=== PATIENT | male | born 1995 | race Caucasian/White ===

== ENCOUNTER 2023-05-31 15:17 | Outpatient (OUT) | payer BC, SELFPAY ==
[2023-05-31 15:34] LABS: Basophils Percent Auto 0.4 % (0.2-2.0); Eosinophils Absolute Auto 0.2 10^3/uL (0.0-0.7); Eosinophils Percent Auto 1.9 % (0.9-7.0); Hematocrit 44.2 % (42.0-54.0); Immature Granulocytes Abs Auto 0.02 10^3/uL (0.00-0.03); Immature Granulocytes Pct Auto 0.2 % (0.0-0.5); Lymphocytes Absolute Auto 2.7 10^3/uL (1.2-3.8); Lymphocytes Percent Auto 27.2 % (20.5-60.0); Mean Corpuscular HGB Conc 33.9 g/dL (29.9-35.2); Mean Corpuscular Hemoglobin 29.5 pg (25.9-34.0); Mean Corpuscular Volume 86.8 fL (80.0-94.0); Mean Platelet Volume 10.1 fL (9.5-13.5); Monocytes Absolute Auto 0.6 10^3/uL (0.3-0.8); Monocytes Percent Auto 6.2 % (1.7-12.0); Neutrophils Absolute Auto 6.3 10^3/uL (1.4-6.5); Neutrophils Percent Auto 64.1 % (43.0-75.0); Platelet Count 243 10^3/uL (150-450); Red Blood Count 5.09 10^6/uL (4.70-6.10); Red Cell Distribution Width 12.6 % (11.0-15.0); White Blood Count 9.9 10^3/uL (4.0-11.0)
[2023-05-31 16:42] LABS: Alanine Aminotransferase 45 U/L (16-63); Aspartate Amino Transferase 27 U/L (15-37); Triglycerides 104 mg/dL (<=150)
== END 2023-05-31 15:18 | disposition home or self-care (01) ==
LOC: LAB 15:21
PROVIDERS: PCP Internal Medicine
DX: L70.0 Acne vulgaris (principal); Z79.899 Other long term (current) drug therapy
CPT/HCPCS: 36415; 84450; 84460; 84478; 85025

== ENCOUNTER 2023-07-15 12:05 | Outpatient (OUT) | payer BC, SELFPAY ==
[2023-07-15 13:09] LABS: Free T4 0.87 ng/dL (0.76-1.46)
[2023-07-15 13:11] LABS: Alanine Aminotransferase 41 U/L (16-63); Albumin Globulin Ratio 1.2; Albumin Level 4.3 g/dL (3.4-5.0); Alkaline Phosphatase 94 U/L (46-116); Anion Gap 12.9; Aspartate Amino Transferase 26 U/L (15-37); BUN Creatinine Ratio 19.1; Bilirubin Total 0.5 mg/dL (0.2-1.0); Calcium 8.8 mg/dL (8.5-10.1); Chloride 101 mmol/L (98-107); Chol HDL Ratio 4.3; Cholesterol 197 mg/dL (<=200); Estimated GFR (African America >60 (>=60); Estimated GFR (Non-African Ame >60 (>=60); Globulin 3.5 g/dL; Glucose 92 mg/dL (74-106); HDL Cholesterol 46 mg/dL (40-60); LDL Cholesterol Calculated 121.6 mg/dL; Potassium 3.9 mmol/L (3.5-5.1); Sodium 140 mmol/L (136-145); Thyroid Stimulating Hormone 0.866 uIU/mL (0.358-3.740); Total Protein 7.8 g/dL (6.4-8.2); Triglycerides 147 mg/dL (<=150); VLDL CHOLESTEROL 29.4 mg/dL
[2023-07-16 04:07] LABS: Estradiol 32.3 pg/mL (7.6-42.6)
[2023-07-20 02:07] LABS: Testosterone 216 ng/dL (264-916)
== END 2023-07-15 12:06 | disposition home or self-care (01) ==
LOC: LAB 12:08
PROVIDERS: PCP Internal Medicine; Visit Provider Nurse Practitioner Family
DX: Z00.00 Encounter for general adult medical examination without abnormal findings (principal); R63.5 Abnormal weight gain
CPT/HCPCS: 36415; 80053; 80061; 82670; 84402; 84403; 84439; 84443

== ENCOUNTER 2023-07-15 12:10 | Outpatient (OUT) | payer BC, SELFPAY ==
[2023-07-15 13:26] LABS: Basophils Percent Auto 0.4 % (0.2-2.0); Eosinophils Absolute Auto 0.2 10^3/uL (0.0-0.7); Eosinophils Percent Auto 2.3 % (0.9-7.0); Hemoglobin 14.8 g/dL (14.0-18.0); Immature Granulocytes Abs Auto 0.01 10^3/uL (0.00-0.03); Immature Granulocytes Pct Auto 0.1 % (0.0-0.5); Lymphocytes Percent Auto 35.3 % (20.5-60.0); Mean Corpuscular HGB Conc 33.6 g/dL (29.9-35.2); Mean Corpuscular Hemoglobin 29.4 pg (25.9-34.0); Mean Corpuscular Volume 87.3 fL (80.0-94.0); Mean Platelet Volume 10.5 fL (9.5-13.5); Monocytes Absolute Auto 0.6 10^3/uL (0.3-0.8); Monocytes Percent Auto 6.7 % (1.7-12.0); Neutrophils Absolute Auto 4.7 10^3/uL (1.4-6.5); Neutrophils Percent Auto 55.2 % (43.0-75.0); Platelet Count 279 10^3/uL (150-450); Red Blood Count 5.04 10^6/uL (4.70-6.10); Red Cell Distribution Width 12.9 % (11.0-15.0); White Blood Count 8.4 10^3/uL (4.0-11.0)
== END 2023-07-15 12:11 | disposition home or self-care (01) ==
LOC: LAB 12:11
PROVIDERS: PCP Internal Medicine
DX: Z00.00 Encounter for general adult medical examination without abnormal findings (principal); R63.5 Abnormal weight gain; L70.0 Acne vulgaris; Z79.899 Other long term (current) drug therapy
CPT/HCPCS: 36415; 80053; 80061; 82670; 84402; 84403; 84439; 84443; 85025

== ENCOUNTER 2023-11-18 05:38 | Emergency (ER) | payer OTHER, SELFPAY ==
[2023-11-18 05:43] VITALS: BP 128/98; PULSE 96; TEMP 36.7; O2SAT 100; BMI 34.1
--- OUTSIDE RECORDS SUMMARY | 2023-11-18 05:48 | XMS_ITS | CCD ---
Author Organization [facility] Care Team Providers Care Financial Institution President Name Role Phone Vicki Jang Unavailable Unavaila ble YuSantos garcia Unavailable Unavailable Yuhas, Santos Jean Unavailable Unavailable YUHAS, DR GRAHAM Attending Unavailable YUHAS, DR GRAHAM Consulting Unavailable YUHAS, DR GRAHAM Admitting Unavailable MISC, DR WHEAT Primary Care Unavailable WHITEHALL, DR RAISSA Joseph Consulting Unavailable MISC, DR WHEAT Primary Care Unavailable XIMENA, CARLTON Admitting Unavailable XIMENA, CARLTON Attending Unavailable CARLTON BUENO Consulting Unavailable BIMAL, DR LILIBETH Torres Primary Care Unavailable BIMAL, DR LILIBETH Torres Admitting Unavailable KUNS, DR LILIBETH Torres Attending Unavailable BIMAL, DR LILIBETH Torres Consulting Unavailable SiennahaSantos santo DO Primary Care Provider LILIBETH ALLAN Attending Unavailable SANTOS RICKS Referring Unavailable SANTOS RICKS Primary Care Unavailable LILIBETH ALLAN Attending Unavailable SANTOS RICKS Referring Unavailable SANTOS RICKS Primary Care Unavailable LILIBETH ALLAN Attending Unavailable SANTOS RICKS Referring Unavailable SANTOS RICKS Primary Care Unavailable Allergies Allergy Classification Reported Allergen(s) Allergy Type Date of Onset Reaction(s) Facility (3 sources) Lisinopril; Translations: [LISINOPRIL] Drug Allergy 12-29-2022 [facility] Medications Current Medications Medication Drug Class(es) Dates Sig (Normalized) Sig (Original) benzoyl peroxide 50 mg/ml medicated liquid soap (2 sources) benzoyl peroxide 5 % external liquid benzoyl peroxide 5 % topical cleanser apply to affected area topically ON FACE AND BACK AND WASH daily 0 Active escitalopram 5 mg oral tablet (2 sources) Serotonin Reuptake Inhibitor Start: 06-13-2023 escitalopram (LEXAPRO) 5 mg tablet Indications: Recurrent major depressive disorder, in partial remission ([facility]) TAKE 1 TABLET IN THE MORNING 90 tablet 3 06/13/2023 Active fluocinolone acetonide 0.1 mg/ml otic solution (2 sources) Corticosteroid Start: 12-29-2022 fluocinolone acetonide oiL (DERMOTIC) 0.01 % drops Administer 5 drops into the left ear in the morning and 5 drops before bedtime. 20 mL 0 12/29/2022 Active ISOtretinoin 40 mg oral capsule (3 sources) Retinoid Start: 10-13-2023 ABSORICA 40 mg capsule End: 11-01-2023 take 1 capsule by mouth in the morning, then take 1 capsule by mouth at bedtime ISOtretinoin (ACCUTANE) 30 mg capsule Take 1 capsule (30 mg total) by mouth in the morning and 1 capsule (30 mg total) before bedtime. 0 11/01/2023 Discontinued (Dose adjustment) losartan potassium 100 mg oral tablet (2 sources) Angiotensin 2 Receptor Jazmin Start: 06-06-2023 losartan (COZAAR) 100 mg tablet Indications: Essential hypertension TAKE 1 TABLET IN THE MORNING 90 tablet 3 06/06/2023 Active meloxicam 15 mg oral tablet (1 source) Nonsteroidal Anti-inflammatory Drug Start: 11-01-2023 take 1 tablet by mouth in the morning meloxicam (MOBIC) 15 mg tablet Indications: Tendonitis Take 1 tablet (15 mg total) by mouth in the morning. 14 tablet 1 11/01/2023 Active minocycline 100 mg oral tablet (1 source) Tetracycline-class Drug Start: 05-06-2017 take 100 mg by mouth every twelve hours Minocycline Active 100 MG PO Q12H May 06, 2017 12:00am naproxen 500 mg oral tablet (2 sources) Nonsteroidal Anti-inflammatory Drug Start: 02-07-2023 naproxen (NAPROSYN) 500 mg tablet Indications: Chronic back pain, unspecified back location, unspecified back pain laterality TAKE 1 TABLET TWICE A DAY NEEDED FOR PAIN 180 tablet 3 02/07/2023 Active phentermine hydrochloride 37.5 mg oral tablet (5 sources) Sympathomimetic Amine Anorectic Start: 07-04-2023 End: 11-01-2023 take 36-36.9 tablets by mouth once daily phentermine (ADIPEX-P) 37.5 mg tablet Indications: Class 2 obesity with body mass index (BMI) of 36.0 to 36.9 in adult, unspecified obesity type, unspecified whether serious comorbidity present Take 1 tablet (37.5 mg total) by mouth every morning before breakfast. 30 tablet 0 11/01/2023 Active tiZANidine 4 mg oral tablet (2 sources) Central alpha-2 Adrenergic Agonist Start: 06-06-2023 tiZANidine (ZANAFLEX) 4 mg tablet Indications: Familial Scheuermann disease TAKE 1 TABLET DAILY AT BEDTIME 90 tablet 3 06/06/2023 Active Completed/Discontinued Medications Medication Drug Class(es) Dates Sig (Normalized) Sig (Original) clindamycin 10 mg/ml topical solution (1 source) Lincosamide Antibacterial Start: 04-02-2022 End: 09-26-2023 clindamycin (CLEOCIN T) 1 % external solution apply to FACE,CHEST,AND BACK once daily 0 04/02/2022 09/26/2023 Discontinued (Therapy completed) Problems Active Problems Problem Classification Problem Date Documented Date Episodic/Chronic Coagulation and hemorrhagic disorders (7 sources) Garcia platelet syndrome; 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] Onset: 06-06-2013 05-06-2017 Chronic Diabetes mellitus without complication (4 sources) Hyperglycemia, unspecified; Translations: [HYPERGLYCEMIA UNSPECIFIED] Onset: 11-25-2020 Episodic Essential hypertension (4 sources) Essential hypertension; Translations: [Essential (primary) hypertension] Onset: 07-04-2023 07-04-2023 Chronic Glaucoma (2 sources) Preglaucoma, unspecified, bilateral; Translations: [Preglaucoma, unspecified] Onset: 08-24-2019 06-30-2022 Chronic Mood disorders (2 sources) Recurrent major depression in partial remission; Translations: [Major depressive disorder, recurrent, in partial remission] Onset: 06-30-2022 06-30-2022 Chronic Other bone disease and musculoskeletal deformities (2 sources) Familial Scheuermann disease; 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, site unspecified] Onset: 09-04-2021 06-30-2022 Chronic Other connective tissue disease (1 source) Tendinitis; Translations: [Enthesopathy, unspecified] 11-01-2023 Episodic Other connective tissue disease (1 source) Enthesopathy, unspecified; Translations: [Enthesopathy, unspecified] Onset: 11-01-2023 Episodic Other nutritional; endocrine; and metabolic disorders (2 sources) Obesity; Translations: [Obesity, unspecified] 09-26-2023 Chronic Other nutritional; endocrine; and metabolic disorders (1 source) Obesity caused by energy imbalance; Translations: [Other obesity due to excess calories] 11-01-2023 Chronic Other nutritional; endocrine; and metabolic disorders (1 source) Other obesity due to excess calories; Translations: [Other obesity due to excess calories] Onset: 11-01-2023 Chronic Other nutritional; endocrine; and metabolic disorders (1 source) Body mass index (BMI) 35.0-35.9, adult; Translations: [Body mass index (BMI) 35.0-35.9, adult] Onset: 11-01-2023 Chronic Other nutritional; endocrine; and metabolic disorders (1 source) Obesity, unspecified; Translations: [Obesity, unspecified] Onset: 11-01-2023 Chronic Other nutritional; endocrine; and metabolic disorders (1 source) Body mass index (BMI) 36.0-36.9, adult; Translations: [Body mass index (BMI) 36.0-36.9, adult] Onset: 11-01-2023 Chronic Other nutritional; endocrine; and metabolic disorders (1 source) Body mass index (BMI) 34.0-34.9, adult; Translations: [Body mass index (BMI) 34.0-34.9, adult] Onset: 09-26-2023 Chronic Other nutritional; endocrine; and metabolic disorders (1 source) Abnormal weight gain; Translations: [ABNORMAL WEIGHT GAIN] Onset: 12-02-2020 Episodic Other nutritional; endocrine; and metabolic disorders (1 source) Weight loss Onset: 11-01-2023 Episodic Other screening for suspected conditions (not mental disorders or infectious disease) (1 source) Other specified abnormal findings of blood chemistry; Translations: [Other specified abnormal findings of blood chemistry] Onset: 08-24-2023 Episodic Other skin disorders (1 source) Cystic acne; Translations: [Acne vulgaris] 05-07-2017 Episodic Other upper respiratory disease (1 source) Epistaxis; Translations: [Recurrent epistaxis] 05-07-2017 Episodic Retinal detachments; defects; vascular occlusion; and retinopathy (2 sources) Hereditary retinal dystrophy; Translations: [Unspecified hereditary retinal dystrophy] Onset: 08-24-2019 06-30-2022 Chronic Spondylosis; intervertebral disc disorders; other back problems (2 sources) Schmorl's nodes of thoracic region; Translations: [Schmorl's nodes, thoracic region] Onset: 07-08-2020 06-30-2022 Chronic Thyroid disorders (4 sources) Thyrotoxicosis, unspecified without thyrotoxic crisis or storm; Translations: [THYROTOXICOS UNS NO THYROTOX CRISIS] Onset: 12-27-2020 Chronic Unclassified (3 sources) CONTACT W/AND (SUSP) EXPOS COVID-19; Translations: [CONTACT W/AND (SUSP) EXPOS COVID-19] Onset: 09-02-2020 Unclassified (1 source) Weight Check Onset: 08-24-2023 Past or Other Problems Problem Classification Problem Date Documented Da te Episodic/Chronic Blindness and vision defects (4 sources) Cone dystrophy; 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] Onset: 02-11-2017 06-30-2022 Episodic Mood disorders (2 sources) Mood disorders Onset: 09-26-2023 Resolved: 11-01-2023 09-26-2023 Other bone disease and musculoskeletal deformities (2 sources) Disorder of bone; Translations: [Disorder of bone, unspecified] Onset: 06-07-2018 06-30-2022 Episodic Other skin disorders (2 sources) Acne; Translations: [Acne, unspecified] Onset: 02-11-2017 06-30-2022 Episodic Unclassified (1 source) CONTACT W/AND (SUSP) EXPOS COVID-19; Translations: [CONTACT W/AND (SUSP) EXPOS COVID-19] Onset: 08-28-2020 Unclassified (2 sources) Onset: 07-04-2023 Resolved: 11-01-2023 07-04-2023 Results Test Name Value Interpretation Reference Range Facility COMPREHENSIVE METABOLIC PANE Marcus 03-10-2022 Albumin [Mass/Vol] 4.7 g/dL Normal 3.6-5.1 [facility] Comment on above: Performed By: #### 5 [id number] #### [facility] [address], [address] [place] [address] Cloth Dyer: Monico Scherer MD Albumin/Globulin [Mass ratio] 2.0 {ratio} Normal 1.0-2.5 [facility] Comment on above: Performed By: #### 5 [id number], [id number] #### [facility] of [address], [address] [place] [address] Cloth Dyer: Monico Scherer MD ALP [Catalytic activity/Vol] 104 U/L Normal 36-130 [facility] Comment on above: Performed By: #### 5 [id number], [id number] #### [facility] of [address], [address] [place] [address] Cloth Dyer: Monico Scherer MD ALT [Catalytic activity/Vol] 26 U/L Normal 9-46 [facility] Comment on above: Performed By: #### 5 [id number], [id number] #### [facility] of [address], [address] [place] [address] Cloth Dyer: Monico Scherer MD AST [Catalytic activity/Vol] 22 U/L Normal 10-40 [facility] Comment on above: Performed By: #### 5 [id number], [id number] #### [facility] of [address], [address] [place] [address] Cloth Dyer: Monico Scherer MD Bilirubin [Mass/Vol] 0.3 mg/dL Normal 0.2-1.2 [facility] Comment on above: Performed By: #### 5 [id number], [id number] #### [facility] of [address], [address] [place] [address] Cloth Dyer: Monico Scherer MD BUN/CREATININE RATIO NOT APPLICABLE Normal 6-22 [facility] Comment on above: Performed By: #### 5 [id number], [id number] #### [facility] of [address], [address] [place] [address] Cloth Dyer: Monico Scherer MD Calcium [Mass/Vol] 9.4 mg/dL Normal 8.6-10.3 [facility] Comment on above: Performed By: #### 5 [id number], [id number] #### [facility] of [address], [address] [place] [address] Cloth Dyer: Monico Scherer MD Chloride [Moles/Vol] 103 mmol/L Normal 98-110 [facility] Comment on above: Performed By: #### 5 [id number], 54090 #### [facility] [place] [address] Cloth Dyer: Monico Scherer MD CO2 [Moles/Vol] 27 mmol/L Normal 20-32 [facility] Comment on above: Performed By: #### 5 [id number], 88507 #### [facility] [place] [address] Cloth Dyer: Monico Scherer MD Creatinine [Mass/Vol] 0.73 mg/dL Normal 0.60-1.24 [facility] Comment on above: Performed By: #### 5 [id number], [id number] #### [facility] [place] [address] Cloth Dyer: Monico Scherer MD GFR/1.73 sq M.predicted among non-blacks MDRD (S/P/Bld) [Vol rate/Area] 128 mL/min/{1.73_m2} Normal > OR = 60 [facility] Comment on above: Result Comment: The eGFR is based on the CKD-EPI 2020 equation. To calculate the new eGFR from a previous Creatinine or Cystatin C result, go to https://www.kidney.org/professionals/ kdoqi/gfr%5Fcalculator Performed By: #### 5 [id number], [id number] #### [facility] [place] [address] Cloth Dyer: Monico Scherer MD Globulin (S) [Mass/Vol] 2.4 g/dL Normal 1.9-3.7 [facility] Comment on above: Performed By: #### 5 [id number], [id number] #### [facility] [place] [address] Cloth Dyer: Monico Scherer MD Glucose [Mass/Vol] 86 mg/dL Normal 65-139 [facility] Comment on above: Result Comment: Non-fasting reference interval Performed By: #### 5 8984, [id number] #### [facility] of [address], [address] [place] [address] Cloth Dyer: Monico Scherer MD Potassium [Moles/Vol] 4.1 mmol/L Normal 3.5-5.[address] [facility] Comment on above: Performed By: #### 5 [id number], 82940 #### [facility] of [place] [address] Cloth Dyer: Monico Scherer MD Protein [Mass/Vol] 7.1 g/dL Normal 6.1-8.1 [facility] Comment on above: Performed By: #### 5 8984, 98763 #### [facility] of [place] [address] Cloth Dyer: Monico Scherer MD Sodium [Moles/Vol] 138 mmol/L Normal 135-146 [facility] Comment on above: Performed By: #### 5 8984, 60780 #### [facility] of [place] [address] Cloth Dyer: Monico Scherer MD Urea nitrogen [Mass/Vol] 17 mg/dL Normal 7-25 [facility] Comment on above: Performed By: #### 5 8984, 79445 #### [facility] [place] [address] Cloth Dyer: Monico Scherer MD TSH+FREE T4on 03-10-2022 Free T4 [Mass/Vol] 1.2 ng/dL Normal 0.8-1.8 [facility] Comment on above: Order Comment: FASTI NG:NO FASTING: NO Performed By: #### 5 8984, 48134 #### [facility] of [place] [address] Cloth Dyer: Monico Scherer MD TSH Qn 0.83 m[IU]/L Normal 0.40-4.50 [facility] Comment on above: Order Comment: FASTI NG:NO FASTING: NO Performed By: #### 5 8984, 86484 #### [facility] of [address] [place] [address] Cloth Dyer: Monico Scherer MD US THYROIDon 12-29-2020 US THYROID EXAMINATION: US THYROID HISTORY: Thyrotoxicosis COMPARISON: No relevant comparison available. TECHNIQUE: Sonographic images of the thyroid gland were obtained. FINDINGS: The right thyroid lobe measures 4.6 x 2.0 x 1.7 cm. Single nodule. Nodule 1: Mid lobe. 0.5 x 0.4 x 0.3 cm. Mixed solid and cystic, hypoechoic, wide, smooth margins, no consultations. TR 3 The thyroid isthmus measures 2 mm, no focal nodule The left thyroid lobe measures 4.8 x 1.6 x 1.8 cm. 2 focal nodules Nodule 1: Mid lobe. 0.4 x 0.3 x 0.3 cm. Solid, hypoechoic, wide, smooth margins, no calcifications. TR 4 Nodule 2: Inferior, 1.0 x 1.0 x 0.7 cm. Mixed solid and cystic, hypoechoic, wide, smooth margins, no calcifications. TR 3 IMPRESSION: Bilateral thyroid nodules, no follow-up required TI-RADS: The [employer] TI-RADS committee's white paper recommendations for thyroid lesions classified as TR3 (mildly suspicious) are listed below: > 1.5 cm. Follow-up ultrasound in 1, 3, and 5 years. > 2.5 cm. FNA. J. Am Tanner Radiol 2017;14:587-595. Electronically authenticated by: RAISSA FARRELL Date: 2020-12-29 07:03 Normal [facility] GLYCOHEMOGLOBIN A1Con 2020 ADA RECOMMENDATION ADA THERAPEUTIC TARGET 6.0 - 7.0 ACTION SUGGESTED > 7.0 Normal [facility] Comment on above: Performed By: #### A 1C #### [facility] [address] [place], [place] [address] Shereen Kristel Glucose [Mass/Vol] 100 mg/dL Normal [facility] Comment on above: Performed By: #### A 1C #### [facility] [address] [place], [place] [address] Shereen Kristel HbA1c (Bld) [Mass fraction] 5.1 % Normal <=6.0 [facility] Comment on above: Performed By: #### A 1C #### [facility] [address] [place] [address] Shereen Kristel PROF CHEM 8 (BAS METB)on Anion gap [Moles/Vol] 11.4 mmol/L Normal [facility] Comment on above: Performed By: #### T SH, BMP #### [facility] [address] [place] [address] Shereen Kristel Calcium [Mass/Vol] 8.7 mg/dL Normal 8.4-10.2 [facility] [place] [facility] Comment on above: Performed By: #### T NICOLÁS, BMP #### [facility] [address] [place] [address] Shereen Kristel Chloride [Moles/Vol] 101 mmol/L Normal 98-107 [facility] Comment on above: Performed By: #### T NICOLÁS, BMP #### [facility] [address] [place] [address] Shereen Kristel CO2 [Moles/Vol] 28.8 mmol/L Normal 22.0-30.0 [facility] Comment on above: Performed By: #### T NICOLÁS, BMP #### [facility] [address] [place] [address] Shereen Kristel Creatinine [Mass/Vol] 0.81 mg/dL Normal 0.66-1.25 [facility] Comment on above: Performed By: #### T NICOLÁS, BMP #### [facility] [address] [place] [address] Shereen Kristel EGFR-AF DOMINICAN >60 Normal >=60 [facility] Comment on above: Performed By: #### T SH, BMP #### [facility] [address] [place] [address] Shereen Kristel EGFR-NON AF DOMINICAN >60 Normal >=60 [facility] Comment on above: Performed By: #### T SH, BMP #### [facility] [address] [place] [address] Shereen Kristel Glucose [Mass/Vol] 95 mg/dL Normal 74-106 [facility] [place] [facility] Comment on above: Performed By: #### T SH, BMP #### [facility] [address] [place], [place] [address] Shereen Kristel Potassium [Moles/Vol] 4.2 mmol/L Normal 3.4-5.0 [facility] Comment on above: Performed By: #### T NICOLÁS, BMP #### [facility] [address] [place] [id number] Shereen Kristel Sodium [Moles/Vol] 137 mmol/L Normal 137-145 [facility] [place] [facility] Comment on above: Performed By: #### T NICOLÁS, BMP #### [facility] [address] [place] [address] Shereen Kristel Urea nitrogen [Mass/Vol] 19.0 mg/dL Normal 9.0-20.0 [facility] Comment on above: Performed By: #### T NICOLÁS, BMP #### [facility] [address] [place] [address] Shereen Kristel Urea nitrogen/Creatinine [Mass ratio] 23.5 mg/mg Normal [facility] Comment on above: Performed By: #### T NICOLÁS, BMP #### [facility] [address] [place] [address] Shereen Kristel TSHon 11-25-2020 TSH 0.357 uIU/mL Critically low 0.470-4.680 [facility] Comment on above: Performed By: #### T NICOLÁS, BMP #### [facility] [address] [place], [place] [id number] Shreeen Kristel TSH RANGE SEE BELOW Normal [facility] Comment on above: Result Comment: <0.3 4 UIU/ml HYPERTHYROID 0.34-5.60 UIU/ml EUTHYROID >5.60 UIU/ml HYPOTHYROID Performed By: #### T NICOLÁS, BMP #### [facility] [address] [place], [place] [id number] Shereen Kristel Covid-19 PCR (CVDTBH)on 08-09 EUA Statement SEE BELOW Normal [facility] Comment on above: Result Comment: This test is not yet approved or cleared by the [place] FDA. When there are no FDA-approved or cleared tests available, and other criteria are met, FDA can make tests available under an emergency access mechanism called an Emergency Use Authorization (EUA). The EUA for this test is supported by the [place] of Health and Human Service?s (HHS?s) declaration that circumstances exist to justify the emergency use of in vitro diagnostics for the detection and/or diagnosis of the virus that causes COVID-19. This EUA will remain in effect (meaning this test can be used) for the duration of the COVID-19 declaration justifying emergency of IVDs, unless it is terminated or revoked by FDA (after which the test may no longer be used). When diagnostic testing is negative, the possibility of a false negative should be considered in the context of a patients recent exposures and the presence of clinical signs and symptoms consistent with SARS-CoV-2. Performed By: #### C VDTB #### [facility] [address] [place] [address] Shereen Humphries SARS-CoV-2 (COVID-19) RNA VLAD+probe Ql (Unsp spec) Not detected Normal NOT DETECTED [facility] Comment on above: Result Comment: This test is not yet approved or cleared by the [place] FDA. When there are no FDA-approved or cleared tests available, and other criteria are met, FDA can make tests available under an emergency access mechanism called an Emergency Use Authorization (EUA). The EUA for this test is supported by the [employer] of Health and Human Service's (HHS's) declaration that circumstances exist to justify the emergency use of in vitro diagnostics for the detection and/or diagnosis of the virus that causes COVID-19. This EUA will remain in effect (meaning this test can be used) for the duration of the COVID-19 declaration justifying emergency of IVDs, unless it is terminated or revoked by FDA (after which the test may no longer be used). Performed By: #### C VDTBH #### [facility] [address] [place], [place] [id number] Shereen Humphries PROGRESSon 08-24-2019 PROGRESS HNO ID: [id number] Author: Re Goldsmith Service: ? Author Type: Physician Type: Progress Notes Filed: 08/28/2019 4:39 PM Note Text: (H40.003) Glaucoma suspect of both eyes (primary encounter diagnosis) Comment: C:D asymmetry but rim looks healthy; Tilted discs. Myopia. HVF without glaucomatous pattern Plan: Monitor without therapy for now - follow OCT ON/GCA; visual field testing performed regularly at [facility] for bioptic driving (H35.50) Hereditary retinal dystrophy Comment: Limiting central vision. Pt uses bioptic device for driving Plan: Monitor (H52.13) Myopia, bilateral Comment: CL wearer, followed by Dr. Argueta Plan: f/u as planned RTC Dr. Argueta SP as needed I have confirmed and edited as necessary the relevant ophthalmic history, ROS, and the neuro exam findings as obtained by others. I have seen and examined this patient. I have discussed the case and the management of this patient's care with the Resident/Fellow/Opt ometrist, if applicable. I also have reviewed and agree with the assessment and plan as stated above and agree with all of its relevant components. Re Goldsmith MD August 24, 2019 10:57 AM Normal [facility] Initial Visit ([facility]thopaedic [facility])on 07-01-2018 Initial Visit (Orthopaedic Surgery) History of Present IllnessAdaverna is a 22 year old male who presents today as a new patient with a chief complaint of back pain and some deformity. I did a posterior spinal fusion on his cousin, Robbi Freed. He is legally visually impaired and has been recently evaluated for work abilities and appropriate conditions. Some of his recent jobs have included working at [employer] and for a [employer] group. During the spring, when he was spreading a lot of mulch, he found himself in a substantial amount of discomfort. He then noticed pain after activities and in the morning when he first gets up. He denies any specific neuro symptoms, but his feet are always cold. OTC meds as well as Zanaflex help. He has not done any bracing or therapy so far. He has two relatives with Scheuermann's Kyphosis. Review of [facility] system review was negative per patient intake sheet as reviewed by me. Past Medical History History of visual impairment (V12.49) (Z86.69) Surgical History Denied: History of prior surgery Family History No pertinent family history Family history of Kyphosis, acquired Social History Never a smoker Allergies No Known Drug Allergies Recorded By: Vicki Jang; 07/01/2018 4:35:36 PM Current Meds Naproxen 500 MG Oral Tablet;Therapy: (Recorded:01Jul2018 ) to Recorded Dispense: 0 Days ; #: Sufficient; Refill: 0; HAWA = N; Record; Last Updated By: Vicki Jang; 07/01/2018 4:35:36 PM Zanaflex 2 MG Oral Capsule;Therapy: (Recorded:01Jul2018 ) to Recorded Dispense: 0 Days ; #: Sufficient; Refill: 0; HAWA = N; Record; Last Updated By: Vicki Jang; 07/01/2018 4:35:36 PM Physical ExamGeneral: Well developed, well nourished male in no acute distress.Skin: The skin is intact with no evidence of abrasions, bruises, or swelling.Vascular: There are 2+ pulses in both lower extremities and brisk capillary refill.Neuro: The light touch sensation is intact in both legs.He has some low kyphosis in his back (the apex is lower than normal), but has appropriate cervical lordosis. THe kyphosis worsens only a little with forward bending. There is no rotation at rest or with forward bending. He has normal DTRs and abdominal reflexes. He has good strength in his legs, a normal heel to toe gait pattern, and can toe walk, heel walk, and single leg hop easily. Results/DataHis films show 3 levels of adjacent disc wedging and schmorls nodes at T11, T12, and L1, with a little wedging at L2 and T10. The MRI shows some significant schmorls nodes. THere is one level of minimal posterior disc herniation with no canal or foraminal impingement. There is also bone edema at T12 and L1 anteriorly. Diagnoses/Problems History of visual impairment (V12.49) (Z86.69) No pertinent family history : Mother Family history of Kyphosis, acquired : Father Never a smoker Kyphosis, acquired (737.10) (M40.209) Schmorl's node (722.30) (M51.9) Provider ImpressionsThe schmorl's nodes and bone changes are likely a source of his pain. He has not done PT yet, so this is a first step. We also discussed activity modifications. If he is not helped by these, bracing to decrease the anterior load is an option, although generally not well tolerated. If none of those things resolves his pain, we can always consider referral to an adult spine surgeon. We will see him again in a few months with a new lateral thoracolumbar spine film to look for changes. Signatures Electronically signed by : Vicki Jang MD; Jul 01 2018 4:38PM EST (Author) Normal [facility] Vital Signs Date Time Vital Sign Value Performing Clinician Concetta sharma 11-01-2023 15:19-0400 Body height 172.7 cm Lilibeth Allan APRN-LAYOUT ARTIST [facility] 11-01-2023 15:19-0400 Body mass index (BMI) [Ratio] 34 kg/m2 Lilibeth Allan APRN-LAYOUT ARTIST [facility] 11-01-2023 15:19-0400 Body temperature 98.4 [degF] Lilibeth Allan APRN-LAYOUT ARTIST [facility] 11-01-2023 15:19-0400 Body weight 101.42 kg Lilibeth Allan APRN-LAYOUT ARTIST [facility] 11-01-2023 15:19-0400 Diastolic blood pressure 80 mm[Hg] Lilibeth Allan APRN-LAYOUT ARTIST [facility] 11-01-2023 15:19-0400 Heart rate 94 /min Lilibeth MORENOLAYOUT ARTIST Work Phone: [facility] [employer] [facility] 11-01-2023 15:19-0400 Respiratory rate 18 /min Lilibeth Allan APRN-LAYOUT ARTIST [facility] 11-01-2023 15:19-0400 SaO2% (BldA) [Mass fraction] 98 % Lilibeth Allan APRN-LAYOUT ARTIST [facility] 11-01-2023 15:19-0400 Systolic blood pressure 110 mm[Hg] Lilibeth Allan APRN-LAYOUT ARTIST [facility] 09-26-2023 16:27-0500 Body height 172.7 cm Lilibeth Allan APRN-LAYOUT ARTIST [facility] 09-26-2023 16:27-0500 Body mass index (BMI) [Ratio] 34.33 kg/m2 Lilibeth Allan APRN-LAYOUT ARTIST [facility] 09-26-2023 16:27-0500 Body temperature 98.8 [degF] Lilibeth Allan FOOD PREPARATION SUPERVISOR-LAYOUT ARTIST [facility] 09-26-2023 16:27-0500 Body weight 102.42 kg Lilibeth Allan APRN-LAYOUT ARTIST [facility] 09-26-2023 16:27-0500 Diastolic blood pressure 84 mm[Hg] Lilibeth Allan APRN-LAYOUT ARTIST [facility] 09-26-2023 16:27-0500 Heart rate 112 /min Lilibeth Allan APRN-LAYOUT ARTIST [facility] 09-26-2023 16:27-0500 SaO2% (BldA) [Mass fraction] 97 % Lilibeth Allan APRN-LAYOUT ARTIST [facility] 09-26-2023 16:27-0500 Systolic blood pressure 110 mm[Hg] Lilibeth Allan APRN-LAYOUT ARTIST Work Phone: [facility] [employer] [facility] Encounters Encounter Date Encounter Type Care Provider Facility Start: 11-01-2023 End: 11-01-2023 ambulatory [facility] Start: 11-01-2023 End: 11-01-2023 Office outpatient visit 25 minutes Lilibeth Allan FOOD PREPARATION SUPERVISOR-LAYOUT ARTIST Work Phone: [facility] Comment on above: Class 2 obesity due to excess calories without serious comorbidity with body mass index (BMI) of 35.0 to 35.9 in adult (Primary Dx); Tendonitis; Class 2 obesity with body mass index (BMI) of 36.0 to 36.9 in adult, unspecified obesity type, unspecified whether serious comorbidity present; Essential hypertension Start: 09-26-2023 End: 09-26-2023 ambulatory [facility] Start: 09-26-2023 End: 09-26-2023 Office outpatient visit 15 minutes Lilibeth Allan FOOD PREPARATION SUPERVISOR-LAYOUT ARTIST Work Phone: [facility] Comment on above: Class 2 obesity with body mass index (BMI) of 36.0 to 36.9 in adult, unspecified obesity type, unspecified whether serious comorbidity present (Primary Dx) Start: 08-24-2023 End: 08-24-2023 ambulatory [facility] Start: 12-27-2020 End: 12-28-[address] SANTOS RICKS Facility:[facility] Start: 11-25-2020 End: 11-26-[address] LILIBETH ALLAN Facility:[facility] Start: 08-28-2020 End: 08-28-[address] DOCTOR MOTTA Facility:[facility] Start: 06-27-2018 Patient encounter procedure Vicki Jang Facility:[id number] Procedures Date Procedure Procedure Detail Performing Clinician Start: 11-01-2023 Adult depression screening assessment Lilibeth Aguilahansa FOOD PREPARATION SUPERVISOR-LAYOUT ARTIST Work Phone: Start: 09-26-2023 Adult depression screening assessment Lilibeth Aguilahansa FOOD PREPARATION SUPERVISOR-LAYOUT ARTIST Work Phone: Plan of Treatment Date Care Activity Detail Author Start: 12-06-2024 DTaP,Tdap and Td Vaccines (2 - Td or Tdap) DTaP,Tdap and Td Vaccines (2 - Td or Tdap) [facility] Start: 10-31-2024 Adult BMI Screening Adult BMI Screen ing [facility] Start: 10-31-2024 Depression Screening Depression Scre [facility] Start: 10-31-2024 Tobacco Screening Tobacco Screening [facility] Start: 09-26-2024 Adult BMI Screening Adult BMI Screen ing [facility] Start: 09-26-2024 Depression Screening Depression Scre [facility] Start: 09-26-2024 Tobacco Screening Tobacco Screening [facility] Start: 07-04-2024 Adult BMI Follow Up Plan Adult BMI Follow Up Plan [facility] Start: 12-13-2023 End: 12-13-2023 Patient encounter procedure 12/13/2023 3:40 PM EDT Office Visit [facility] [address] [place] [address] Lilibeth Allan, FOOD PREPARATION SUPERVISOR-LAYOUT ARTIST [address] [place] [address] [facility] Start: 04-08-2023 Influenza vaccination Influenza Vacc ine [facility] Immunizations Immunization Date Immunization Notes Care Provider Fa cility 12-06-2014 tetanus toxoid, redu hanh diphtheria toxoid, and acellular pertussis vaccine, adsorbed Lilibeth Allan FOOD PREPARATION SUPERVISOR-LAYOUT ARTIST Work Phone: [facility] Payers Date Payer Category Payer Unknown [employer] (PPO) [id number] 2021-Present [phone] [address] [place] [address] [id number] 1995 Unknown [id number] 1995 Unknown [id number] 593 1994 Unknown [id number] 593 1994 Unknown [id number] 593 1994 Unknown [id number] 1286 1994 Unknown [id number] 1286 1994 Unknown [id number] 1286 1959 Unknown [id number] Private Health Insurance [id number] Self-pay Self Pay [id number] Unknown HCAP/HFA/FAP Active [id number] Social History Date Type Detail Facility Tobacco smoking stat [facility] Unknown if ever smoked [facility] Work Phone: Start: 1995 Sex Assigned At Male [facility] Start: 06-30-[address] [facility] Never smoked tobacco [facility] Start: 06-30-2022 Tobacco use and exposure Smokeless tobacco non-user [facility] Start: 09-26-2023 End: 11-01-2023 Alcohol intake Current drinker of alcohol (finding) [facility] Start: 09-26-2023 End: 11-01-2023 Alcohol intake [facility] Start: 09-26-2023 End: 11-01-2023 Tobacco use panel [facility] Adolescent depressio n screening assessment 0 [facility] Start: 1995 Sex Assigned At Not on file P [facility] History of Present illness Narrative 11-01-2023 Lilibeth Allan, FOOD PREPARATION SUPERVISOR-LAYOUT ARTIST - 11/01/2023 3:20 PM EDT Note Date & Type Note Facility 11-01-2023 History of Present illness Narrative Subjective Patient ID: Juan Manuel Bernardo is a 28 y.o. male. He hasn't exercised as much this past month but still making progress with his weight loss Still working out vigorously From June to now he has lost 22 lbs No side effects from medication He does have a new problem today for the past week he has had pain in the left lateral elbow area from just above and below the elbow It hurts most to fully extend the elbow and when there is resistance against, it is worst first thing in the morning and then it improves during the day The following portions of the patient's history were reviewed and updated as appropriate: allergies, current medications, past family history, past medical history, past social history, past surgical history, problem list, and medication reconciliation was completed including current medication and post discharge medication. Review of Systems Constitutional: Negative. HENT: Negative. Eyes: Negative. Respiratory: Negative. Cardiovascular: Negative. Gastrointestinal: Negative. Endocrine: Negative. Genitourinary: Negative. Musculoskeletal: Positive for arthralgias. Negative for joint swelling. Skin: Negative. Allergic/Immunologic: Negative. Neurological: Negative. Hematological: Negative. Psychiatric/Behavioral: Negative. Objective Physical Exam Vitals and nursing note reviewed. Constitutional: General: He is not in acute distress. HENT: Head: Normocephalic. Eyes: Conjunctiva/sclera: Conjunctivae normal. Cardiovascular: Rate and Rhythm: Normal rate and regular rhythm. Heart sounds: Normal heart sounds. No murmur heard. Pulmonary: Effort: Pulmonary effort is normal. Breath sounds: Normal breath sounds. Musculoskeletal: General: Tenderness (tenderness along the lateral aspect just above and below the right elbow and with full extension of the arm but not pronation or supination no tenderness of the joint of itself) present. Cervical back: No tenderness. Right lower leg: No edema. Left lower leg: No edema. Lymphadenopathy: Cervical: No cervical adenopathy. Skin: General: Skin is warm and dry. Capillary Refill: Capillary refill takes less than 2 seconds. Neurological: Mental Status: He is alert and oriented to person, place, and time. Psychiatric: Mood and Affect: Mood normal. Behavior: Behavior normal. Thought Content: Thought content normal. Judgment: Judgment normal. Patient noted to have elevated BMI and the following intervention(s) were applied: encouragement to exercise. Assessment/Plan Juan Manuel was seen today for weight loss. Diagnoses and all orders for this visit: Class 2 obesity due to excess calories without serious comorbidity with body mass index (BMI) of 35.0 to 35.9 in adult Tendonitis - meloxicam (MOBIC) 15 mg tablet; Take 1 tablet (15 mg total) by mouth in the morning. Class 2 obesity with body mass index (BMI) of 36.0 to 36.9 in adult, unspecified obesity type, unspecified whether serious comorbidity present - phentermine (ADIPEX-P) 37.5 mg tablet; Take 1 tablet (37.5 mg total) by mouth every morning before breakfast. Essential hypertension Blood pressure is stable, no changes made today Blood work current, reviewed from Jun 30 Continue his phentermine as he is having good results and no side effects He is to continue with diet modifications and exercise minus the weight lifting for now His OARRS was reviewed and no issues noted He is having some elbow pain along the tendon, he is to stop lifting for a short time, wear an elbow sleeve, ice and take mobic for two weeks The OARRS/MAPPS database was reviewed today and found to be appropriate. No indication of medication diversion, or non compliance. MATEUS Strickland 11/01/23 4340 documented in this encounter [facility] History of Present illness Narrative 09-26-2023 MATEUS Strickland - 09/26/2023 4:30 PM EST Note Date & Type Note Facility 09-26-2023 History of Present illness Narrative Subjective Patient ID: Juan Manuel Bernardo is a 28 y.o. male. Here for review of adipex use Has lost 9 lbs since last visit His stress level is up some this week, he is going to be starting a new position at work He has a lot of work stress but otherwise he feels things are going well He is going to the gym and is not having any side effects His goal is to get down to about 190 lbs The following portions of the patient's history were reviewed and updated as appropriate: allergies, current medications, past family history, past medical history, past social history, past surgical history, problem list, and medication reconciliation was completed including current medication and post discharge medication. Review of Systems Constitutional: Positive for activity change. HENT: Negative. Eyes: Negative. Respiratory: Negative. Cardiovascular: Negative. Gastrointestinal: Negative. Endocrine: Negative. Genitourinary: Negative. Skin: Negative. Allergic/Immunologic: Negative. Neurological: Negative. Hematological: Negative. Psychiatric/Behavioral: Negative. Objective Physical Exam Vitals and nursing note reviewed. Constitutional: Appearance: He is obese. HENT: Head: Normocephalic. Eyes: Conjunctiva/sclera: Conjunctivae normal. Cardiovascular: Rate and Rhythm: Regular rhythm. Tachycardia present. Heart sounds: Normal heart sounds. No murmur heard. Pulmonary: Effort: Pulmonary effort is normal. Breath sounds: Normal breath sounds. Musculoskeletal: Cervical back: Neck supple. Right lower leg: No edema. Left lower leg: No edema. Lymphadenopathy: Cervical: No cervical adenopathy. Skin: General: Skin is warm and dry. Neurological: Mental Status: He is alert and oriented to person, place, and time. Psychiatric: Mood and Affect: Mood normal. Behavior: Behavior normal. Thought Content: Thought content normal. Judgment: Judgment normal. Assessment/Plan Juan Manuel was seen today for weight check. Diagnoses and all orders for this visit: Class 2 obesity with body mass index (BMI) of 36.0 to 36.9 in adult, unspecified obesity type, unspecified whether serious comorbidity present - phentermine (ADIPEX-P) 37.5 mg tablet; Take 1 tablet (37.5 mg total) by mouth every morning before breakfast. He is making good progress with the adipex, prescription renewed today, will see back in one month The OARRS/MAPPS database was reviewed today and found to be appropriate. No indication of medication diversion, or non compliance. MATEUS Strickland 09/26/23 1835 documented in this encounter [facility] Evaluation note Note Date & Type Note Facility Evaluation note No assessment information [facility] Work Phone: Evaluation note Note Date & Type Note Facility Evaluation note Diagnosis Class 2 obesity with body mass index (BMI) of 36.0 to 36.9 in adult, unspecified obesity type, unspecified whether serious comorbidity present- Primary documented in this encounter [facility] Evaluation note Note Date & Type Note Facility Evaluation note Diagnosis Class 2 obesity due to excess calories without serious comorbidity with body mass index (BMI) of 35.0 to 35.9 in adult- Primary Tendonitis Enthesopathy of unspecified site Class 2 obesity with body mass index (BMI) of 36.0 to 36.9 in adult, unspecified obesity type, unspecified whether serious comorbidity present Essential hypertension Unspecified essential hypertension documented in this encounter [facility] Instructions Note Date & Type Note Facility Instructions Not on filedocumented in this en counter [facility] Instructions Attachments Note Date & Type Note Facility Instructions The following attachments cannot be sent through Care Everywhere.Lateral Epicondylitis Exercises (Malay)documented in this encounter [facility] Summary Purpose Family History No Family History Records FoundNo Family History Records FoundNo Family History Records FoundNo Family History Records FoundNo Family History Records FoundNo Family History Records Found Advance Directives No Advanced Directives Records FoundNo Advanced Directives Records FoundNo Advanced Directives Records FoundNo Advanced Directives Records FoundNo Advanced Directives Records FoundNo Advanced Directives Records Found Reason for Referral Specialty Diagnoses / Procedures Referred By Contac t Referred To Contact Diagnoses Class 2 obesity with body mass index (BMI) of 36.0 to 36.9 in adult, unspecified obesity type, unspecified whether serious comorbidity present Lilibeth Allan, FOOD PREPARATION SUPERVISOR-LAYOUT ARTIST [address] [place] [address] Referral ID Status Reason Start Date Expiration Date Visits Re quested Visits Authorized [id number] Closed 1 1 Referral ID Status Reason Start Date Expiration Date Visits Re quested Visits Authorized [id number] Closed 1 1 Additional Source Comments (unrecognized sect ion and content) No Status Records FoundNo Status Records FoundNo Status Records FoundNo Status Records FoundNo Status Records FoundNo Status Records Found INFORMATION SOURCE (unrecogn ized section and content) DATE CREATED AUTHOR 07/17/2018 [facility] DATE CREATED AUTHOR AUTHOR'S ORGANIZ ATION 07/17/2018 [facility] DATE CREATED AUTHOR AUTHOR'S ORGANIZ ATION 08/28/2019 [facility] DATE CREATED AUTHOR AUTHOR'S ORGANIZ ATION 01/01/2021 [facility] DATE CREATED AUTHOR AUTHOR'S ORGANIZ ATION 03/11/2022 [facility] DATE CREATED AUTHOR AUTHOR'S ORGANIZ ATION 11/03/20[facility] Goals (unrecognized section and content) Goals may be documented in a n alternate sectionNot on filedocumented as of this encounterNot on filedocumented as of this encounter Reason for Visit (unrecogniz ed section and content) Reason Comments Weight Check Reason Comments Weight Loss Care Teams (unrecognized sec tion and content) Financial Institution President Relationship Specialty Start Date End Date Santos Ricks DO [address] [place] [address] PCP - General Internal Medicine 06/30/22 Financial Institution President Relationship Specialty Start Date End Date Santos Ricks DO [address] [place] [address] PCP - General Internal Medicine 06/30/22 FOR RECORDS PERTAINING TO PATIENTS WHO ARE OR HAVE BEEN ENROLLED IN A CHEMICAL DEPENDENCY/SUBSTANCEABUSE PROGRAM, SOME INFORMATION MAY BE OMITTED. This clinical summary was aggregated from multiple sources. Caution should be exercised in using it in the provision of clinical care. This summary normalizes information from multiple sources, and as a consequence, information in this document may materially change the coding, format and clinical context of patient data. In addition, data may be omitted in some cases. CLINICAL DECISIONS SHOULD BE BASED ON THE PRIMARY CLINICAL RECORDS. [facility]. provides no warranty or guarantee of the accuracy or completeness of information in this document.
--- NOTE | 2023-11-18 05:57 | XR_ITS ---
The [address] [address] Patient Name: IMANI MADDEN MRN: [id number] date: 1995 Sex: M Assigned Patient Location: ER Current Patient Location: ER Accession/Order Number: [id number] Exam Date: 11/18/2023 06:17 Report Date: 11/18/2023 06:42 At the request of: CHUCKY MARKER Procedure: XR foot RT min 3V PROCEDURE: XR foot RT min 3V HISTORY: foot pain ; heavy object fell on foot COMPARISON: None. FINDINGS: BONES:No fracture, acute abnormality, or significant arthropathy. SOFT TISSUES:Distal dorsal soft tissue swelling. EFFUSION:None visible. OTHER: Negative. XR/XR foot RT min 3V IMPRESSION: 1. Dorsal soft tissue swelling. 2. No acute bone abnormality. Electronically authenticated by: TONE SIMS Date: 11/18/2023 06:42
--- NOTE | 2023-11-18 06:03 | ED_ITS ---
HPI HPI - Extremity Injury (Lower) General Chief Complaint: Extremity Injury, Lower Stated Complaint: LOWER EXTREMITY PAIN/ BWC Time Seen by Provider: 11/18/23 05:44 Source: patient Mode of arrival: walk-in Limitations: no limitations History of Present Illness HPI Narrative: This 28-year-old male who works for the [employer] presents for evaluation of a right foot injury. The patient states that a pin from the [employer] cars Weighing between 30 and 40 pounds fell onto his right foot. He was wearing steel toed boots. The area that was injured was distal to his toes. He has pain and swell ing on the right 1st 2nd and 3rd metatarsals. This area is swollen and bruised. He did not fall. He has no additional complaints. Related Data Home Medications ?Medication ?Instructions ?Recorded ?Confirmed escitalopram oxalate 5 mg tablet 5 mg PO DAILY 11/18/23 11/18/23 isotretinoin 40 mg capsule 40 mg PO BID 11/18/23 11/18/23 (Absorica) losartan 100 mg tablet 100 mg PO DAILY 11/18/23 11/18/23 naproxen 500 mg tablet 500 mg PO Q12H 11/18/23 11/18/23 tizanidine 4 mg tablet 4 mg PO DAILY 11/18/23 11/18/23 Allergies Allergy/AdvReac Type Severity Reaction Status Date / Time No Known Drug Allergies Allergy Verified 11/18/23 05:49 Opioid HPI Opioid Management Most Recent Pain and Opioid Data: Last Pain Scale 6 11/18/23 07:09 Last ED Pain Assessment 11/18/23 06:03 Last MAR Pain Assessment 11/18/23 07:09 Review of Systems ROS Status of ROS 10 or more systems reviewed and unremark able except as noted in history and below Exam Narrative Exam Narrative: Nurses note and vital signs reviewed and patient is not hypoxic. General: Alert, nontoxic but uncomfortable appearing male, no respiratory distress Skin: Warm, dry, no pallor noted. There is no rash noted. Head: Normocephalic, atraumatic Eye: Normal conjunctiva, no drainage, EOMI. PERRL Cardiovascular: Regular Rate and Rhythm Respiratory: Patient is in no distress, no accessory muscle use, lungs are clear to auscultation, no wheezing, rales or rhonchi Musculoskeletal: Right lower extremity: There is tenderness, swelling and bruising to the medial arch aspect of the foot and the 1st 2nd and 3rd metatarsals. Dorsalis pedis pulse is brisk. Patient is able to move his toes but this causes pain in the midfoot. Ankle and Achilles are intact Neurological: A&O x4, normal speech Psychiatric: Cooperative Constitutional Vital Signs, click to edit/add: Last Vital Signs Temp 98.1 F 11/18/23 05:43 Pulse 96 H 11/18/23 05:43 Resp 16 11/18/23 05:43 BP 128/98 H 11/18/23 05:43 Pulse Ox 100 11/18/23 05:43 O2 Del Method Room Air 11/18/23 05:43 Course Vital Signs Vital signs: Vital Signs Temperature 98.1 F 11/18/23 05:43 Pulse Rate 96 H 11/18/23 05:43 Respiratory Rate 16 11/18/23 05:43 Blood Pressure 128/98 H 11/18/23 05:43 Pulse Oximetry 100 11/18/23 05:43 Oxygen Delivery Method Room Air 11/18/23 05:43 Temperature 98.1 F 11/18/23 05:43 Pulse Rate 96 H 11/18/23 05:43 Respiratory Rate 16 11/18/23 05:43 Blood Pressure 128/98 H 11/18/23 05:43 Pulse Oximetry 100 11/18/23 05:43 Oxygen Delivery Method Room Air 11/18/23 05:43 MDM - Extremity Injury (Lower) MDM Narrative Medical decision making narrative: This 28 year old male presents for evaluation of a right foot injury that occurred at work when a >30 pound pin from [employer] cars fell onto his foot. He has swelling and bruising of the foot, His feet and warm and sensate otherwise. Xray of the foot does not show any fracture, foreign body or dislocation. He was medicated in the ED with toradol and zofran and after his [facility] drug screen was complete,he was given a dose of percocet. A royal wrap was applied by myself to the foot for comfort and compression and he was discharged home with Rx for percocet to use as needed for pain.I also counseled him on RICE despite this not being a fracture, it is a significant crush injury/contusion. He declined the need for crutches for ambulation. Medical Records Medical records narrative: The [address] [address] XRay Report Signed Patient: IMANI MADDEN MR#: [id number] : 1995 Acct:[id number] Age/Sex: 28 / M ADM Date: 11/18/23 Loc: ER Attending Dr: Ordering Physician: Estella Sanchez Date of Service: 11/18/23 Procedure(s): XR foot RT min 3V Accession Number(s): [id number] cc: Estella Sanchez; SANTOS RICKS ~ The [address] [address] Patient Name: IMANI MADDEN MRN: [id number] date: 1995 Sex: M Assigned Patient Location: ER Current Patient Location: ER Accession/Order Number: [id number] Exam Date: 11/18/2023 06:17 Report Date: 11/18/2023 06:42 At the request of: ESTELLA SANCHEZ Procedure: XR foot RT min 3V PROCEDURE: XR foot RT min 3V HISTORY: foot pain ; heavy object fell on foot COMPARISON: None. FINDINGS: BONES:No fracture, acute abnormality, or significant arthropathy. SOFT TISSUES:Distal dorsal soft tissue swelling. EFFUSION:None visible. OTHER: Negative. XR/XR foot RT min 3V IMPRESSION: 1. Dorsal soft tissue swelling. 2. No acute bone abnormality. Electronically authenticated by: TONE SIMS Date: 11/18/2023 06:42 Discharge Plan Discharge Stand Alone Forms: Portal Instructions Chief Complaint: Extremity Injury, Lower Clinical Impression: Crush injury of right foot, Contusion of right foot Patient Disposition: Home, Self-Care Time of Disposition Decision: 06:58 Condition: Good Mode of Transportation: Private Vehicle Prescriptions / Home Meds: No Action isotretinoin [Absorica] 40 mg capsule 40 mg PO BID escitalopram oxalate 5 mg tablet 5 mg PO DAILY losartan 100 mg tablet 100 mg PO DAILY naproxen 500 mg tablet 500 mg PO Q12H tizanidine 4 mg tablet 4 mg PO DAILY Print Language: Romansh Instructions: Foot Contusion (ED), Crush Injury (ED) Referrals: SANTOS RICKS [Primary Care Provider] - 1 week Discharge Date/Time: 11/18/23 07:27
[2023-11-18] MEDS: KETOROLAC TROMETHAMINE 60 MG/2 ML VIAL IM (07:09)
[2023-11-18] MEDS: OXYCODONE HCL/ACETAMINOPHEN 5MG/325MG 1 TAB PO (07:09)
[2023-11-18] MEDS: ONDANSETRON 4 MG RAPDIS TABLET SL (07:09)
== END 2023-11-18 07:27 | disposition home or self-care (01) ==
PROVIDERS: Emergency Provider Emergency Medicine; PCP Internal Medicine
DX: S97.81XA Crushing injury of right foot, initial encounter (principal); S90.31XA Contusion of right foot, initial encounter; W20.8XXA Other cause of strike by thrown, projected or falling object, initial encounter
CPT/HCPCS: 73630; 96372; 99284

== ENCOUNTER 2025-01-14 05:20 | Emergency (ER) | payer BC, SELFPAY ==
[2025-01-14 05:26] VITALS: BP 123/91; PULSE 120; TEMP 36.9; O2SAT 96; BMI 35.0
--- OUTSIDE RECORDS SUMMARY | 2025-01-14 05:28 | XMS_ITS | CCD ---
Author Organization [facility] Care Team Providers Care Reel Blade Bender Furnace Tender Name Role Phone Vicki Jang Unavailable Unavaila ble Santos Ricks Unavailable Unavailable Yuhas, Santos Jean Unavailable Unavailable YUHAS, DR GRAHAM Attending Unavailable YUHAS, DR GRAHAM Consulting Unavailable YUHAS, DR GRAHAM Admitting Unavailable MISC, DR WHEAT Primary Care Unavailable GREENVILLE, DR RAISSA Joseph Consulting Unavailable MISC, DR WHEAT Primary Care Unavailable XIMENA, CARLTON Admitting Unavailable XIMENA, CARLTON Attending Unavailable CARLTON BUENO Consulting Unavailable BIMAL, DR LILIBETH Torres Primary Care Unavailable KUNS, DR LILIBETH Torres Admitting Unavailable KUNS, DR LILIBETH Torres Attending Unavailable KUNS, DR LILIBETH Torres Consulting Unavailable LILIBETH ALLAN Attending Unavailable YUHASANTOS [place] Referring Unavailable YUHASANTOS [place] Primary Care Unavailable LILIBETH ALLAN Attending Unavailable YUSANTOS JENKINS Referring Unavailable YUHASSANTOS Primary Care Unavailable LILIBETH ALLAN Attending Unavailable YUSANTOS JENKINS Referring Unavailable YUHASANTOS [place] Primary Care Unavailable SAPNA MUNOZ Attending Unavailable SANTOS RICKS Referring Unavailable YUHASANTOS [place] Primary Care Unavailable SAPNA MUNOZ Attending Unavailable SANTOS RICKS Referring Unavailable SAPNA MUNOZ Primary Care Unavailable SAPNA MUNOZ Attending Unavailable SAPNA MUNOZ Referring Unavailable SAPNA MUNOZ Primary Care Unavailable LILIBETH ALLAN Attending Unavailable SANTOS RICKS Referring Unavailable YUSANTOS JENKINS Primary Care Unavailable LILIBETH ALLAN Attending Unavailable SANTOS RICKS Referring Unavailable SANTOS RICKS Primary Care Unavailable Alexander PRODUCT BLENDING SUPERVISOR-Sapna STROUD Primary Care Provid er Santos Ricks DO Primary Care Provider Allergies Allergy Classification Reported Allergen(s) Allergy Type Date of Onset Reaction(s) Facility (11 sources) Lisinopril; Translations: [LISINOPRIL] Drug Allergy 12-29-2022 Cough [facility] Medications Current Medications Medication Drug Class(es) Dates Sig (Normalized) Sig (Original) benzoyl peroxide 50 mg/ml medicated liquid soap (10 sources) benzoyl peroxide 5 % external liquid benzoyl peroxide 5 % topical cleanser apply to affected area topically ON FACE AND BACK AND WASH daily Active escitalopram 5 mg oral tablet (11 sources) Serotonin Reuptake Inhibitor Start: 06-13-2023 End: 02-16-2024 take 1 tablet by mouth in the morning escitalopram (LEXAPRO) 5 mg tablet Indications: Recurrent major depressive disorder, in partial remission (CMS-HCC) Take 1 tablet (5 mg total) by mouth in the morning. 90 tablet 3 02/16/2024 Active fluocinolone acetonide 0.1 mg/ml otic solution (10 sources) Corticosteroid Start: 12-29-2022 fluocinolone acetonide oiL (DERMOTIC) 0.01 % drops Administer 5 drops into the left ear in the morning and 5 drops before bedtime. 20 mL 12/29/2022 Active ISOtretinoin 40 mg oral capsule (11 sources) Retinoid Start: 10-13-2023 ABSORICA 40 mg capsule 10/13/2023 Active End: 11-01-2023 take 1 capsule by mouth in the morning, then take 1 capsule by mouth at bedtime ISOtretinoin (ACCUTANE) 30 mg capsule Take 1 capsule (30 mg total) by mouth in the morning and 1 capsule (30 mg total) before bedtime. 0 11/01/2023 Discontinued (Dose adjustment) losartan potassium 100 mg oral tablet (12 sources) Angiotensin 2 Receptor Jazmin Start: 06-06-2023 End: 08-14-2024 take 1 tablet by mouth in the morning losartan (COZAAR) 100 mg tablet Indications: Essential hypertension Take 1 tablet (100 mg total) by mouth in the morning. 90 tablet 3 02/16/2024 Active minocycline 100 mg oral tablet (1 source) Tetracycline-class Drug Start: 05-06-2017 take 100 mg by mouth every twelve hours Minocycline Active 100 MG PO Q12H May 06, 2017 12:00am naproxen 500 mg oral tablet (10 sources) Nonsteroidal Anti-inflammatory Drug Start: 03-19-2024 End: 03-19-2024 take 1 tablet by mouth in the morning, then take 1 tablet by mouth at mealtime naproxen (NAPROSYN) 500 mg tablet Indications: Chronic back pain, unspecified back location, unspecified back pain laterality Take 1 tablet (500 mg total) by mouth in the morning and 1 tablet (500 mg total) in the evening. Take with meals. 14 tablet 03/19/2024 Active Start: 02-07-2023 End: 02-16-2024 naproxen (NAPROSYN) 500 mg t ablet Indications: Chronic back pain, unspecified back location, unspecified back pain laterality TAKE 1 TABLET TWICE A DAY NEEDED FOR PAIN 180 tablet 3 02/07/2023 02/16/2024 Discontinued (Therapy completed) phentermine hydrochloride 37.5 mg oral tablet (19 sources) Sympathomimetic Amine Anorectic Start: 07-04-2023 End: 04-12-2024 take 32-32.9 tablets by mouth once daily before breakfast phentermine (ADIPEX-P) 37.5 mg tablet Indications: Class 1 obesity due to excess calories without serious comorbidity with body mass index (BMI) of 32.0 to 32.9 in adult Take 1 tablet (37.5 mg total) by mouth every morning before breakfast. 30 tablet 04/12/2024 Active tiZANidine 4 mg oral tablet (11 sources) Central alpha-2 Adrenergic Agonist Start: 07-04-2024 take 1 tablet by mouth once daily as needed for muscle spasms tiZANidine (ZANAFLEX) 4 mg tablet Indications: Familial Scheuermann disease Take 1 tablet (4 mg total) by mouth nightly as needed for muscle spasms. 90 tablet 07/04/2024 Active Start: 06-06-2023 End: 02-16-2024 take 1 tablet by mouth once daily as needed for muscle spasms tiZANidine (ZANAFLEX) 4 mg tablet Indications: Familial Scheuermann disease Take 1 tablet (4 mg total) by mouth nightly as needed for muscle spasms. 90 tablet 3 02/16/2024 Active triamcinolone acetonide 1 mg/ml topical cream (5 sources) Corticosteroid Start: 01-06-2024 triamcinolone (KENALOG) 0.1 % cream apply A THIN LAYER to affected area twice a day for up to 3 weeks repeat if needed for FLARES 01/06/2024 Active Completed/Discontinued Medications Medication Drug Class(es) Dates Sig (Normalized) Sig (Original) clindamycin 10 mg/ml topical solution (2 sources) Lincosamide Antibacterial Start: 04-02-2022 End: 09-26-2023 clindamycin (CLEOCIN T) 1 % external solution apply to FACE,CHEST,AND BACK once daily 0 04/02/2022 09/26/2023 Discontinued (Therapy completed) ibuprofen 600 mg oral tablet (3 sources) Nonsteroidal Anti-inflammatory Drug Start: 11-20-2023 End: 02-16-2024 take 1 tablet by mouth every six hours for pain ibuprofen (MOTRIN) 600 mg tablet take 1 tablet by mouth every 6 hours if needed for pain 11/20/2023 02/16/2024 Discontinued (Therapy completed) meloxicam 15 mg oral tablet (4 sources) Nonsteroidal Anti-inflammatory Drug Start: 11-01-2023 End: 02-16-2024 take 1 tablet by mouth in the morning meloxicam (MOBIC) 15 mg tablet Indications: Tendonitis Take 1 tablet (15 mg total) by mouth in the morning. 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] Onset: 06-06-2013 05-06-2017 Chronic Diabetes mellitus without complication (4 sources) Hyperglycemia, unspecified; Translations: [HYPERGLYCEMIA UNSPECIFIED] Onset: 11-25-2020 Episodic Essential hypertension (14 sources) Essential (primary) hypertension; Translations: [Essential hypertension] Onset: 07-04-2023 08-14-2024 Chronic Glaucoma (10 sources) Preglaucoma, unspecified, bilateral; Translations: [Preglaucoma, unspecified] Onset: 08-24-2019 06-30-2022 Chronic Mood disorders (12 sources) Major depressive disorder, recurrent, in partial remission; Translations: [Recurrent major depression in partial remission] Onset: 06-30-2022 06-30-2022 Chronic Other bone disease and musculoskeletal deformities (1 source) Juvenile osteochondrosis of spine, site unspecified; 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, site unspecified] Onset: 06-30-2022 Chronic Other bone disease and musculoskeletal deformities (11 sources) Familial Scheuermann disease; 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, site unspecified] Onset: 09-04-2021 06-30-2022 Chronic Other nutritional; endocrine; and metabolic disorders (1 source) Body mass index (BMI) 32.0-32.9, adult; Translations: [Body mass index (BMI) 32.0-32.9, adult] Onset: 04-12-2024 Chronic Other nutritional; endocrine; and metabolic disorders (1 source) Body mass index (BMI) 33.0-33.9, adult; Translations: [Body mass index (BMI) 33.0-33.9, adult] Onset: 12-13-2023 Chronic Other nutritional; endocrine; and metabolic disorders [...] Chronic Other nutritional; endocrine; and metabolic disorders (7 sources) Obesity caused by energy imbalance; Translations: [Other obesity due to excess calories] 12-13-2023 Chronic Other nutritional; endocrine; and metabolic disorders (2 sources) Obesity; Translations: [Obesity, unspecified] 09-26-2023 Chronic Other nutritional; endocrine; and metabolic disorders (1 source) Abnormal weight gain; Translations: [ABNORMAL WEIGHT GAIN] Onset: 12-02-2020 Episodic Other skin disorders (1 source) Cystic acne; Translations: [Acne vulgaris] 05-07-2017 Episodic Other upper respiratory disease (1 source) Epistaxis; Translations: [Recurrent epistaxis] 05-07-2017 Episodic Retinal detachments; defects; vascular occlusion; and retinopathy (10 sources) Hereditary retinal dystrophy; Translations: [Unspecified hereditary retinal dystrophy] Onset: 08-24-2019 06-30-2022 Chronic Spondylosis; intervertebral disc disorders; other back problems (10 sources) Schmorl's nodes of thoracic region; Translations: [Schmorl's nodes, thoracic region] Onset: 07-08-2020 06-30-2022 Chronic Thyroid disorders (4 sources) Thyrotoxicosis, unspecified without thyrotoxic crisis or storm; Translations: [THYROTOXICOS UNS NO THYROTOX CRISIS] Onset: 12-27-2020 Chronic Unclassified (3 sources) CONTACT W/AND (SUSP) EXPOS COVID-19; Translations: [CONTACT W/AND (SUSP) EXPOS COVID-19] Onset: 09-02-2020 Unclassified (1 source) Weight Onset: 03-15-2024 Unclassified (1 source) Weight Check Onset: 12-13-2023 Past or Other Problems Problem Classification Problem Date Documented Da te Episodic/Chronic Blindness and vision defects (20 sources) Cone dystrophy; 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] Onset: 02-11-2017 06-30-2022 Episodic Mood disorders (10 sources) Mood disorders Onset: 11-01-2023 Resolved: 02-16-2024 02-16-2024 Other bone disease and musculoskeletal deformities (10 sources) Disorder of bone; Translations: [Disorder of bone, unspecified] Onset: 06-07-2018 06-30-2022 Episodic Other connective tissue disease (1 source) Enthesopathy, unspecified; Translations: [Enthesopathy, unspecified] Onset: 11-01-2023 Episodic Other connective tissue disease (1 source) Tendinitis; Translations: [Enthesopathy, unspecified] 11-01-2023 Episodic Other nutritional; endocrine; and metabolic disorders (1 source) Weight loss Onset: 11-01-2023 Episodic Other screening for suspected conditions (not mental disorders or infectious disease) (2 sources) Other specified abnormal findings of blood chemistry; Translations: [Decreased testosterone level ] Onset: 08-24-2023 08-24-2023 Episodic Other skin disorders (10 sources) Acne; Translations: [Acne, unspecified] Onset: 02-11-2017 06-30-2022 Episodic Spondylosis; intervertebral disc disorders; other back problems (1 source) Chronic back pain ; Translations: [Dorsalgia, unspecified] 03-19-2024 Episodic Unclassified (1 source) CONTACT W/AND (SUSP) EXPOS COVID-19; Translations: [CONTACT W/AND (SUSP) EXPOS COVID-19] Onset: 08-28-2020 Unclassified (10 sources) Onset: 03-15-2024 Resolved: 04-12-2024 04-12-2024 Results Test Name Value Interpretation Reference Range Facility COMPREHENSIVE METABOLIC PANE [facility] 03-10-2022 Albumin [Mass/Vol] 4.7 g/dL Normal 3.6-5.1 [facility] Comment on above: Performed By: #### 5 [id number], [id number] #### [facility] [place] [address] Farm Truck Driver: Monico Scherer MD Albumin/Globulin [Mass ratio] 2.0 {ratio} Normal 1.0-2.5 [facility] Comment on above: Performed By: #### 5 [id number], [id number] #### [facility] [place] [address] Farm Truck Driver: Monico Scherer MD ALP [Catalytic activity/Vol] 104 U/L Normal 36-130 [facility] Comment on above: Performed By: #### 5 [id number], [id number] #### [facility] [place] [address] Farm Truck Driver: Monico Scherer MD ALT [Catalytic activity/Vol] 26 U/L Normal 9-46 [facility] Comment on above: Performed By: #### 5 8984, [id number] #### [facility] of [place] [address] Farm Truck Driver: Monico Scherer MD AST [Catalytic activity/Vol] 22 U/L Normal 10-40 [facility] Comment on above: Performed By: #### 5 [id number], [id number] #### [facility] of [address], [address] [place] [address] Farm Truck Driver: Monico Scherer MD Bilirubin [Mass/Vol] 0.3 mg/dL Normal 0.2-1.2 [facility] Comment on above: Performed By: #### 5 8984, 13100 #### [facility] of [place] [address] Farm Truck Driver: Monico Scherer MD BUN/CREATININE RATIO NOT APPLICABLE Normal 6-22 [facility] Comment on above: Performed By: #### 5 8984, [id number] #### [facility] of [place] [address] Farm Truck Driver: Monico Scherer MD Calcium [Mass/Vol] 9.4 mg/dL Normal 8.6-10.3 [facility] Comment on above: Performed By: #### 5 8984, 40173 #### [facility] of [address], [address] [place] [address] Farm Truck Driver: Monico Scherer MD Chloride [Moles/Vol] 103 mmol/L Normal 98-110 [facility] Comment on above: Performed By: #### 5 8984, 48701 #### [facility] of [place] [address] Farm Truck Driver: Monico Scherer MD CO2 [Moles/Vol] 27 mmol/L Normal 20-32 [facility] Comment on above: Performed By: #### 5 8984, 08375 #### [facility] of [address], [address] [place] [address] Farm Truck Driver: Monico Scherer MD Creatinine [Mass/Vol] 0.73 mg/dL Normal 0.60-1.[address] [facility] Comment on above: Performed By: #### 5 8984, 78136 #### [facility] [place] [address] Farm Truck Driver: Monico Scherer MD GFR/1.73 sq M.predicted among non-blacks MDRD (S/P/Bld) [Vol rate/Area] 128 mL/min/{1.73_m2} Normal > OR = 60 [facility] Comment on above: Result Comment: The eGFR is based on the CKD-EPI 2020 equation. To calculate the new eGFR from a previous Creatinine or Cystatin C result, go to https://www.kidney.org/professionals/ kdoqi/gfr%5Fcalculator Performed By: #### 5 8984, [id number] #### [facility] [place] [address] Farm Truck Driver: Monico Scherer MD Globulin (S) [Mass/Vol] 2.4 g/dL Normal 1.9-3.7 [facility] Comment on above: Performed By: #### 5 8984, 85678 #### [facility] [place] [address] Farm Truck Driver: Monico Scherer MD Glucose [Mass/Vol] 86 mg/dL Normal 65-139 [facility] Comment on above: Result Comment: Non-fasting reference interval Performed By: #### 5 8984, 22437 #### [facility] [place] [address] Farm Truck Driver: Monico Scherer MD Potassium [Moles/Vol] 4.1 mmol/L Normal 3.5-5.[address] [facility] Comment on above: Performed By: #### 5 8984, 85112 #### [facility] [place] [address] Farm Truck Driver: Monico Scherer MD Protein [Mass/Vol] 7.1 g/dL Normal 6.1-8.1 [facility] Comment on above: Performed By: #### 5 8984, 72818 #### [facility] [place] [address] Farm Truck Driver: Monico Scherer MD Sodium [Moles/Vol] 138 mmol/L Normal 135-146 [facility] Comment on above: Performed By: #### 5 8984, 01007 #### [facility] [place] [address] Farm Truck Driver: Monico Scherer MD Urea nitrogen [Mass/Vol] 17 mg/dL Normal 7-25 [facility] Comment on above: Performed By: #### 5 8984, 45952 #### [facility] [place] [address] Farm Truck Driver: Monico Scherer MD TSH+FREE T4on 03-10-2022 Free T4 [Mass/Vol] 1.2 ng/dL Normal 0.8-1.8 [facility] Comment on above: Order Comment: FASTI NG:NO FASTING: NO Performed By: #### 5 8984, 35196 #### [facility] [place] [address] Farm Truck Driver: Monico Scherer MD TSH Qn 0.83 m[IU]/L Normal 0.40-4.50 [facility] Comment on above: Order Comment: FASTI NG:NO FASTING: NO Performed By: #### 5 8984, 52690 #### [facility] [place] [address] Farm Truck Driver: Monico Scherer MD US THYROIDon 12-29-2020 US [...] thyroid nodules, no follow-up required TI-RADS: The [employer] TI-RADS committee's white paper recommendations for thyroid lesions classified as TR3 (mildly suspicious) are listed below: > 1.5 cm. Follow-up ultrasound in 1, 3, and 5 years. > 2.5 cm. FNA. J. Am Tanner Radiol 2017;14:587-595. Electronically authenticated by: RAISSA FARRELL Date: 2020-12-29 07:[address] [facility] GLYCOHEMOGLOBIN A1Con 2020 ADA RECOMMENDATION ADA THERAPEUTIC TARGET 6.0 - 7.0 ACTION SUGGESTED > 7.[address] [facility] Comment on above: Performed By: #### A 1C #### [facility] [address] [place], [place] [address] Shereen Kristel Glucose [Mass/Vol] 100 mg/dL Normal [facility] Comment on above: Performed By: #### A 1C #### [facility] [address] [place], [place] [address] Shereen Kristel HbA1c (Bld) [Mass fraction] 5.1 % Normal <=6.[address] [facility] Comment on above: Performed By: #### A 1C #### [facility] [address] [place], [place] [address] Shereen Humphries PROF CHEM 8 (BAS METB)on Anion gap [Moles/Vol] 11.4 mmol/L Normal [facility] Comment on above: Performed By: #### T SH, BMP #### [facility] [address] [place], [place] [address] Shereen Kristel Calcium [Mass/Vol] 8.7 mg/dL Normal 8.4-10.2 [facility] Comment on above: Performed By: #### T SH, BMP #### [facility] [address] [place] [address] Shereen Kristel Chloride [Moles/Vol] 101 mmol/L Normal 98-107 [facility] Comment on above: Performed By: #### T SH, BMP #### [facility] [address] [place] [address] Shereen Kristel CO2 [Moles/Vol] 28.8 mmol/L Normal 22.0-30.0 [facility] Comment on above: Performed By: #### T SH, BMP #### [facility] [address] [place] [address] Shereen Kristel Creatinine [Mass/Vol] 0.81 mg/dL Normal 0.66-1.25 [facility] Comment on above: Performed By: #### T SH, BMP #### [facility] [address] [place] [address] Shereen Kristel EGFR-AF ROMANIAN >60 Normal >=60 [facility] Comment on above: Performed By: #### T SH, BMP #### [facility] [address] [place] [address] Shereen Kristel EGFR-NON AF ROMANIAN >60 Normal >=60 [facility] Comment on above: Performed By: #### T SH, BMP #### [facility] [address] [place] [address] Shereen Kristel Glucose [Mass/Vol] 95 mg/dL Normal 74-106 [facility] Comment on above: Performed By: #### T SH, BMP #### [facility] [address] [place] [address] Shereen Kristel Potassium [Moles/Vol] 4.2 mmol/L Normal 3.4-5.0 [facility] Comment on above: Performed By: #### T SH, BMP #### [facility] [address] [place] [address] Shereen Kristel Sodium [Moles/Vol] 137 mmol/L Normal 137-145 [facility] Comment on above: Performed By: #### T SH, BMP #### [facility] [address] [place] [address] Shereen Humphries Urea nitrogen [Mass/Vol] 19.0 mg/dL Normal 9.0-20.0 [facility] Comment on above: Performed By: #### T SH, BMP #### [facility] [address] [place] [address] Shereen Humphries Urea nitrogen/Creatinine [Mass ratio] 23.5 mg/mg Normal [facility] Comment on above: Performed By: #### T SH, BMP #### [facility] [address] [place] [address] Shereen Humphries TSHon 11-25-2020 TSH 0.357 uIU/mL Critically low 0.470-4.680 [facility] Comment on above: Performed By: #### T NICOLÁS, BMP #### [facility] [address] [place] [address] Shereen Humphries TSH RANGE SEE BELOW Normal [facility] Comment on above: Result Comment: <0.3 4 UIU/ml HYPERTHYROID 0.34-5.60 UIU/ml EUTHYROID >5.60 UIU/ml HYPOTHYROID Performed By: #### T NICOLÁS, BMP #### [facility] [address] [place], [place] [id number] Shereen Humphries Covid-19 PCR (CVDTB)on 08-09 EUA Statement SEE BELOW Normal The [facility] Comment on above: Result Comment: This test is not yet approved or cleared by the [place] [facility] FDA. When there are no FDA-approved or cleared tests available, and other criteria are met, FDA can make tests available under an emergency access mechanism called an Emergency Use Authorization (EUA). The EUA for this test is supported by the [place] of Health and Human Service?s (HHS?s) declaration [...] consistent with SARS-CoV-2. Performed By: #### C VDTBH #### [facility] [address] [place] [address] Shereen Humphries SARS-CoV-2 (COVID-19) RNA VLAD+probe Ql (Unsp spec) Not detected Normal NOT DETECTED [facility] Comment on above: Result Comment: This test is not yet approved or cleared by the [place] FDA. When there are no FDA-approved or cleared tests available, and other criteria are met, FDA can make tests available under an emergency access mechanism called an Emergency Use Authorization (EUA). The EUA for this test is supported by the [place] of Health and Human Service's (HHS's) declaration [...] used). Performed By: #### C VDTBH #### [facility] [address] [place] [address] Shereen Humphries PROGRESSon 08-24-2019 PROGRESS HNO ID: [id number] Author: Re Goldsmith Service: ? Author Type: [...] MD August 24, 2019 10:57 AM Normal [facility] Initial Visit (Orthopaedic [facility])on 07-01-2018 Initial Visit (Orthopaedic Surgery) History of Present IllnessJuan Manuel is a 22 year old male who presents today as a new patient with a chief complaint of back pain and some deformity. I did a posterior spinal fusion on his cousin, Robbi Freed. He is legally visually impaired and has been recently evaluated for work abilities and appropriate conditions. Some of his recent jobs have included working at [employer] and for a [employer]. During the spring, when he was [...] two relatives with Scheuermann's Kyphosis. Review of SystemsA 16 system review was negative per patient [...] Jul 01 2018 4:38PM EST (Author) Normal [facility] Vital Signs Date Time Vital Sign Value Performing Clinician Faci lity 04-12-2024 14:29-0400 Body height 172.7 cm Sapna Munoz APRN-[employer] Work Phone: [facility] 04-12-2024 14:29-0400 Body mass index (BMI) [Ratio] 32.78 kg/m2 Sapna Munoz APRN-[employer] Work Phone: [facility] 04-12-2024 14:29-0400 Body temperature 97.9 [degF] Sapna Munoz APRN-[employer] Work Phone: [facility] 04-12-2024 14:29-0400 Body weight 97.8 kg Sapna Munoz APRN-[employer] Work Phone: [facility] 04-12-2024 14:29-0400 Diastolic blood pressure 80 mm[Hg] Sapna Munoz APRN-MAXIM[employer] Work Phone: [facility] 04-12-2024 14:29-0400 Heart rate 117 /min Sapna Munoz APRN-[employer] Work Phone: [facility] 04-12-2024 14:29-0400 Respiratory rate 18 /min Sapna Munoz APRN-[employer] Work Phone: [facility] 04-12-2024 14:29-0400 SaO2% (BldA) [Mass fraction] 97 % Sapna Munoz APRN-[employer] Work Phone: [facility] 04-12-2024 14:29-0400 Systolic blood pressure 110 mm[Hg] Sapna Munoz APRN-[employer] Work Phone: [facility] 03-15-2024 14:25-0400 Body height 172.7 cm Sapna Munoz APRN-[employer] Work Phone: [facility] 03-15-2024 14:25-0400 Body mass index (BMI) [Ratio] 33.03 kg/m2 Sapna Munoz APRN-[employer] Work Phone: [facility] 03-15-2024 14:25-0400 Body temperature 98.6 [degF] Sapna Munoz APRN-[employer] Work Phone: [facility] 03-15-2024 14:25-0400 Body weight 98.52 kg Sapna Munoz APRN-MICROBIOLOGY INSTRUCTOR Work Phone: [facility] 03-15-2024 14:25-0400 Diastolic blood pressure 80 mm[Hg] Sapna Munoz APRN-MICROBIOLOGY INSTRUCTOR Work Phone: [facility] 03-15-2024 14:25-0400 Heart rate 79 /min Sapna Munoz APRN-[employer] Work Phone: [facility] 03-15-2024 14:25-0400 SaO2% (BldA) [Mass fraction] 98 % Sapna Munoz APRN-[employer] Work Phone: [facility] 03-15-2024 14:25-0400 Systolic blood pressure 124 mm[Hg] Sapna Munoz APRN-[employer] Work Phone: [facility] 02-16-2024 13:50-0400 Body height 172.7 cm Sapna Munoz APRN-[employer] Work Phone: [facility] 02-16-2024 13:50-0400 Body mass index (BMI) [Ratio] 32.9 kg/m2 Sapna Munoz APRN-[employer] Work Phone: [facility] 02-16-2024 13:50-0400 Body temperature 98.1 [degF] Sapna Munoz APRN-[employer] Work Phone: [facility] 02-16-2024 13:50-0400 Body weight 98.16 kg Sapna Munoz APRN-MICROBIOLOGY INSTRUCTOR Work Phone: [facility] 02-16-2024 13:50-0400 Diastolic blood pressure 82 mm[Hg] Sapna Munoz APRN-MICROBIOLOGY INSTRUCTOR Work Phone: [facility] 02-16-2024 13:50-0400 Heart rate 78 /min Sapna Munoz APRN-MICROBIOLOGY INSTRUCTOR Work Phone: [facility] 02-16-2024 13:50-0400 Respiratory rate 20 /min Sapna Munoz APRN-MICROBIOLOGY INSTRUCTOR Work Phone: [facility] 02-16-2024 13:50-0400 SaO2% (BldA) [Mass fraction] 99 % Sapna Munoz APRN-MICROBIOLOGY INSTRUCTOR Work Phone: [facility] 02-16-2024 13:50-0400 Systolic blood pressure 124 mm[Hg] Sapna Munoz APRN-MICROBIOLOGY INSTRUCTOR Work Phone: [facility] 01-10-2024 16:01-0400 Body height 172.7 cm Lilibeth Allan PRODUCT BLENDING SUPERVISOR-FARM SUPERVISOR Work Phone: [facility] 01-10-2024 16:01-0400 Body mass index (BMI) [Ratio] 33.48 kg/m2 Lilibeth Allan PRODUCT BLENDING SUPERVISOR-FARM SUPERVISOR Work Phone: [facility] 01-10-2024 16:01-0400 Body temperature 97.3 [degF] Lilibeth Allan APRN-FARM SUPERVISOR Work Phone: [facility] 01-10-2024 16:01-0400 Body weight 99.88 kg Lilibeth Allan PRODUCT BLENDING SUPERVISOR-FARM SUPERVISOR Work Phone: [facility] 01-10-2024 16:01-0400 Diastolic blood pressure 82 mm[Hg] Lilibeth Allan PRODUCT BLENDING SUPERVISOR-FARM SUPERVISOR Work Phone: [facility] 01-10-2024 16:01-0400 Heart rate 92 /min Lilibeth Allan PRODUCT BLENDING SUPERVISOR-FARM SUPERVISOR Work Phone: [facility] 01-10-2024 16:01-0400 Respiratory rate 16 /min Lilibeth Allan PRODUCT BLENDING SUPERVISOR-FARM SUPERVISOR Work Phone: [facility] 01-10-2024 16:01-0400 SaO2% (BldA) [Mass fraction] 99 % Lilibeth Allan APRN-FARM SUPERVISOR Work Phone: [facility] 01-10-2024 16:01-0400 Systolic blood pressure 118 mm[Hg] Lilibeth Allan APRN-FARM SUPERVISOR Work Phone: [facility] 12-13-2023 15:42-0400 Body height 172.7 cm Lilibeth Allan APRN-FARM SUPERVISOR Work Phone: [facility] 12-13-2023 15:42-0400 Body mass index (BMI) [Ratio] 33.85 kg/m2 Lilibeth MORENOFARM SUPERVISOR Work Phone: [facility] 12-13-2023 15:42-0400 Body temperature 98.2 [degF] Lilibeth Allan APRN-FARM SUPERVISOR Work Phone: [facility] 12-13-2023 15:42-0400 Body weight 100.97 kg Lilibeth Allan APRN-FARM SUPERVISOR Work Phone: [facility] 12-13-2023 15:42-0400 Diastolic blood pressure 80 mm[Hg] Lilibeth MORENOFARM SUPERVISOR Work Phone: [facility] 12-13-2023 15:42-0400 Heart rate 93 /min Lilibeth MORENOFARM SUPERVISOR Work Phone: [facility] 12-13-2023 15:42-0400 Respiratory rate 18 /min Lilibeth Allan PRODUCT BLENDING SUPERVISOR-FARM SUPERVISOR Work Phone: [facility] 12-13-2023 15:42-0400 SaO2% (BldA) [Mass fraction] 98 % Lilibeth Allan APRN-FARM SUPERVISOR Work Phone: [facility] 12-13-2023 15:42-0400 Systolic blood pressure 120 mm[Hg] Lilibeth Allan APRN-FARM SUPERVISOR Work Phone: [facility] 11-01-2023 15:19-0400 Body height 172.7 cm Lilibeth Allan APRN-FARM SUPERVISOR Work Phone: [facility] 11-01-2023 15:19-0400 Body mass index (BMI) [Ratio] 34 kg/m2 Lilibeth Allan APRN-FARM SUPERVISOR Work Phone: [facility] 11-01-2023 15:19-0400 Body temperature 98.4 [degF] Lilibeth Allan APRN-FARM SUPERVISOR Work Phone: [facility] 11-01-2023 15:19-0400 Body weight 101.42 kg Lilibeth Allan APRN-FARM SUPERVISOR Work Phone: [facility] 11-01-2023 15:19-0400 Diastolic blood pressure 80 mm[Hg] Lilibeth Allan APRN-FARM SUPERVISOR Work Phone: [facility] 11-01-2023 15:19-0400 Heart rate 94 /min Lilibeth Allan APRN-FARM SUPERVISOR Work Phone: [facility] 11-01-2023 15:19-0400 Respiratory rate 18 /min Lilibeth Allan APRN-FARM SUPERVISOR Work Phone: [facility] 11-01-2023 15:19-0400 SaO2% (BldA) [Mass fraction] 98 % Lilibeth Allan APRN-FARM SUPERVISOR Work Phone: [facility] 11-01-2023 15:19-0400 Systolic blood pressure 110 mm[Hg] Lilibeth Allan APRN-FARM SUPERVISOR Work Phone: [facility] 09-26-2023 16:27-0500 Body height 172.7 cm Lilibeth Allan APRN-FARM SUPERVISOR Work Phone: [facility] 09-26-2023 16:27-0500 Body mass index (BMI) [Ratio] 34.33 kg/m2 Lilibeth Allan APRN-FARM SUPERVISOR Work Phone: [facility] 09-26-2023 16:27-0500 Body temperature 98.8 [degF] Lilibeth Allan APRN-FARM SUPERVISOR Work Phone: [facility] 09-26-2023 16:27-0500 Body weight 102.42 kg Lilibeth Allan PRODUCT BLENDING SUPERVISOR-FARM SUPERVISOR Work Phone: [facility] 09-26-2023 16:27-0500 Diastolic blood pressure 84 mm[Hg] Lilibeth Allan APRN-FARM SUPERVISOR Work Phone: [facility] 09-26-2023 16:27-0500 Heart rate 112 /min Lilibeth Allan APRN-FARM SUPERVISOR Work Phone: [facility] 09-26-2023 16:27-0500 SaO2% (BldA) [Mass fraction] 97 % Lilibeth Allan APRN-FARM SUPERVISOR Work Phone: [facility] 09-26-2023 16:27-0500 Systolic blood pressure 110 mm[Hg] Lilibeth Allan PRODUCT BLENDING SUPERVISOR-FARM SUPERVISOR Work Phone: [facility] 08-24-2023 16:23-0500 Body height 172.7 cm Lilibeth Allan APRN-FARM SUPERVISOR Work Phone: [facility] 08-24-2023 16:23-0500 Body mass index (BMI) [Ratio] 35.67 kg/m2 Lilibeth Allan APRN-FARM SUPERVISOR Work Phone: [facility] 08-24-2023 16:23-0500 Body temperature 97.9 [degF] Lilibeth Allan PRODUCT BLENDING SUPERVISOR-FARM SUPERVISOR Work Phone: [facility] 08-24-2023 16:23-0500 Body weight 106.41 kg Lilibeth Allan APRN-FARM SUPERVISOR Work Phone: [facility] 08-24-2023 16:23-0500 Diastolic blood pressure 70 mm[Hg] Lilibeth Allan APRN-FARM SUPERVISOR Work Phone: [facility] 08-24-2023 16:23-0500 Heart rate 89 /min Lilibeth Allan PRODUCT BLENDING SUPERVISOR-FARM SUPERVISOR Work Phone: [facility] 08-24-2023 16:23-0500 SaO2% (BldA) [Mass fraction] 98 % Lilibeth Allan PRODUCT BLENDING SUPERVISOR-FARM SUPERVISOR Work Phone: [facility] 08-24-2023 16:23-0500 Systolic blood pressure 110 mm[Hg] Lilibeth Allan PRODUCT BLENDING SUPERVISOR-FARM SUPERVISOR Work Phone: [facility] Encounters Encounter Date Encounter Type Care Provider Facility Start: 08-14-2024 End: 08-14-[address] [facility] Medicine Comment on above: Essential hypertensi on Start: 04-12-2024 End: 04-12-2024 ambulatory [facility] Start: 04-12-2024 End: 04-12-2024 Office outpatient visit [facility] Work Phone: [facility] Comment on above: Class 1 obesity due to excess calories without serious comorbidity with body mass index (BMI) of 32.0 to 32.9 in adult (Primary Dx) Start: 03-19-2024 End: 03-19-2024 Orders [facility] Work Phone: [facility] Comment on above: Chronic back pain, u nspecified back location, unspecified back pain laterality (Primary Dx) Start: 03-15-2024 End: 03-15-2024 amb[address] [facility] Start: 03-15-2024 End: 03-15-2024 Office outpatient visit 15 minutes Sapna Munoz PRODUCT BLENDING SUPERVISOR-MICROBIOLOGY INSTRUCTOR Work Phone: [facility] Comment on above: Class 1 obesity due to excess calories without serious comorbidity with body mass index (BMI) of 33.0 to 33.9 in adult Start: 02-16-2024 End: 02-16-[address] amb[address] [facility] Start: 02-16-2024 End: 02-16-2024 Office outpatient visit 15 minutes Sapna J Munoz PRODUCT BLENDING SUPERVISOR-MICROBIOLOGY INSTRUCTOR Work Phone: [facility] Comment on above: Essential hypertensi on (Primary Dx); Recurrent major depressive disorder, in partial remission (CMS-HCC); Familial Scheuermann disease; Class 1 obesity due to excess calories without serious comorbidity with body mass index (BMI) of 33.0 to 33.9 in adult Start: 01-10-2024 End: 01-10-2024 Office outpatient visit 15 minutes Lilibeth Allan PRODUCT BLENDING SUPERVISOR-FARM SUPERVISOR [facility] Comment on above: Class 1 obesity due to excess calories without serious comorbidity with body mass index (BMI) of 33.0 to 33.9 in adult (Primary Dx) Start: 01-10-2024 End: 01-10-2024 ambulatory [facility] Start: 12-13-2023 End: 12-13-2023 Office outpatient visit 15 minutes Lilibeth Allan PRODUCT BLENDING SUPERVISOR-FARM SUPERVISOR Work Phone: [facility] Comment on above: Class 1 obesity due to excess calories without serious comorbidity with body mass index (BMI) of 33.0 to 33.9 in adult (Primary Dx) Start: 12-13-2023 End: 12-13-2023 ambulatory [facility] Start: 11-01-2023 End: 11-01-2023 Office outpatient visit 25 minutes Lilibeth Allan PRODUCT BLENDING SUPERVISOR-FARM SUPERVISOR [facility] Comment on above: Class 2 obesity due to excess calories without serious comorbidity with body mass index (BMI) of 35.0 to 35.9 in adult (Primary Dx); Tendonitis; Class 2 obesity with body mass index (BMI) of 36.0 to 36.9 in adult, unspecified obesity type, unspecified whether serious comorbidity present; Essential hypertension Start: 11-01-2023 End: 11-01-2023 ambulatory [facility] Start: 09-26-2023 End: 09-26-2023 Office outpatient visit 15 minutes Lilibeth Allan PRODUCT BLENDING SUPERVISOR-FARM SUPERVISOR Work Phone: [facility] Comment on above: Class 2 obesity with body mass index (BMI) of 36.0 to 36.9 in adult, unspecified obesity type, unspecified whether serious comorbidity present (Primary Dx) Start: 09-26-2023 End: 09-26-2023 ambulatory [facility] Start: 08-24-2023 End: 08-24-2023 Office outpatient visit 15 minutes Lilibeth Allan PRODUCT BLENDING SUPERVISOR-FARM SUPERVISOR Work Phone: [facility] Comment on above: Class 2 obesity due to excess calories without serious comorbidity with body mass index (BMI) of 35.0 to 35.9 in adult (Primary Dx); Low testosterone in male Start: 08-24-2023 End: 08-24-2023 ambulatory [facility] Start: 12-27-2020 End: 12-28-[address] SANTOS RICKS Facility:[id number] Start: 11-25-2020 End: 11-26-[address] LILIBETH ALLAN Facility:[facility] Start: 08-28-2020 End: 08-28-[address] DOCTOR MOTTA Facility:[facility] Start: 06-27-2018 Patient encounter procedure Vicki Jang Facility:[id number] Procedures Date Procedure Procedure Detail Performing Clinician Start: 02-16-2024 Adult depression screening assessment Sapna Munoz PRODUCT BLENDING SUPERVISOR-MICROBIOLOGY INSTRUCTOR Work Phone: Start: 12-13-2023 Adult depression screening assessment Lilibeth Allan PRODUCT BLENDING SUPERVISOR-FARM SUPERVISOR Work Phone: Start: 11-01-2023 Adult depression screening assessment Lilibeth Allan PRODUCT BLENDING SUPERVISOR-FARM SUPERVISOR Work Phone: Start: 09-26-2023 Adult depression screening assessment Lilibeth Allan PRODUCT BLENDING SUPERVISOR-FARM SUPERVISOR Work Phone: Start: 08-24-2023 Adult depression screening assessment Lilibeth Allan PRODUCT BLENDING SUPERVISOR-FARM SUPERVISOR Work Phone: Plan of Treatment Date Care Activity Detail Author Start: 04-12-2025 Adult BMI Follow Up Plan Adult BMI Follow Up Plan [facility] Start: 04-12-2025 Adult BMI Screening Adult BMI Screen ing [facility] Start: 04-12-2025 Tobacco Screening Tobacco Screening [facility] Start: 03-15-2025 Adult BMI Follow Up Plan Adult BMI Follow Up Plan [facility] Start: 03-15-2025 Adult BMI Screening Adult BMI Screen ing [facility] Start: 03-15-2025 Tobacco Screening Tobacco Screening [facility] Start: 02-15-2025 Adult BMI Screening Adult BMI Screen ing [facility] Start: 02-15-2025 Depression Screening Depression Scre ening [facility] Start: 02-15-2025 Tobacco Screening Tobacco Screening [facility] Start: 01-09-2025 Adult BMI Follow Up Plan Adult BMI Follow Up Plan [facility] Start: 01-09-2025 Adult BMI Screening Adult BMI Screen ing [facility] Start: 01-09-2025 Tobacco Screening Tobacco Screening [facility] Start: 12-12-2024 Depression Screening Depression Scre ening [facility] Start: 12-12-2024 Tobacco Screening Tobacco Screening [facility] Start: 12-06-2024 DTaP,Tdap and Td Vaccines (2 - Td or Tdap) DTaP,Tdap and Td Vaccines (2 - Td or Tdap) [facility] Start: 10-31-2024 Adult BMI Follow Up Plan Adult BMI Follow Up Plan [facility] Start: 10-31-2024 Adult BMI Screening Adult BMI Screen ing [facility] Start: 10-31-2024 Depression Screening Depression Scre ening [facility] Start: 10-31-2024 Tobacco Screening Tobacco Screening [facility] Start: 09-26-2024 Adult BMI Screening Adult BMI Screen ing [facility] Start: 09-26-2024 Depression Screening Depression Scre ening [facility] Start: 09-26-2024 Tobacco Screening Tobacco Screening [facility] Start: 08-24-2024 Adult BMI Screening Adult BMI Screen ing [facility] Start: 08-24-2024 Depression Screening Depression Scre ening [facility] Start: 08-24-2024 Tobacco Screening Tobacco Screening [facility] Start: 07-09-2024 End: 07-09-2024 Patient encounter procedure 07/09/2024 3:20 PM EST Office Visit [facility] [address] [place] [address] Sapna Munoz, PRODUCT BLENDING SUPERVISOR-MICROBIOLOGY INSTRUCTOR [address] [place] [address] [facility] Internal Medicine Family Medicine Start: 07-04-2024 Adult BMI Follow Up Plan Adult BMI Follow Up Plan [facility] Start: 04-12-2024 End: 04-12-2024 Patient encounter procedure 04/12/2024 2:20 PM EDT Office Visit [facility] [address] [place] [address] Sapna Munoz, PRODUCT BLENDING SUPERVISOR-MICROBIOLOGY INSTRUCTOR [address] [place] [address] [facility] Internal Medicine - Family Medicine Start: 03-15-2024 End: 03-15-2024 Patient encounter procedure 03/15/2024 2:20 PM EDT Office Visit [facility] [address] [place] [address] Sapna Munoz, PRODUCT BLENDING SUPERVISOR-MICROBIOLOGY INSTRUCTOR [address] [place] [address] [facility] Start: 02-16-2024 End: 02-16-2024 Patient encounter procedure 02/16/2024 1:40 PM EDT Office Visit [facility] [address] [place] [address] Sapna Munoz, PRODUCT BLENDING SUPERVISOR-MICROBIOLOGY INSTRUCTOR [address] [place] [address] [facility] Start: 12-13-2023 End: 12-13-2023 Patient encounter procedure 12/13/2023 3:40 PM EDT Office Visit [facility] Internal [facility] [address] [place] [phone] Lilibeth Allan, PRODUCT BLENDING SUPERVISOR-FARM SUPERVISOR [address] [place] [address] [facility] Start: 09-26-2023 End: 09-26-2023 Patient encounter procedure 09/26/2023 4:30 PM EST Office Visit [facility] Internal [facility] [address] [place] [phone] Lilibeth Allan, PRODUCT BLENDING SUPERVISOR-FARM SUPERVISOR [address] [place] [address] [facility] Start: 04-08-2023 Influenza vaccination Influenza Vacc ine [facility] Immunizations Immunization Date Immunization Notes Care Provider Fa cility 12-06-2014 tetanus toxoid, redu hanh diphtheria toxoid, and acellular pertussis vaccine, adsorbed Lilibeth Allan PRODUCT BLENDING SUPERVISOR-FARM SUPERVISOR Work Phone: [facility] Payers Date Payer Category Payer [employer] Blue [employer] Managed Care - PPO ANTHEM [id number] 2021 Unknown SOLA ODOM SS (PPO) [id number] 2021-Present [phone] [address] [place] [address] [id number] 1994 Unknown [id number]. 2.356 1994 Unknown [id number] [id number]. 2.593 1994 Unknown [id number] 2.16.840.1.455043.3.579. 2.593 1994 Unknown [id number] 2.16.840.1.245156.3.579. 2.593 1994 Unknown [id number] [id number]. 2.1286 1994 Unknown [id number] 2.16.840.1.847454.3.579. 2.1286 1994 Unknown [id number] [id number]. 2.1286 1994 Unknown [id number] 2.16.840.1.182408.3.579. 2.1286 1994 Unknown [id number] 2.16.840.1.944011.3.579. 2.1286 1994 Unknown [id number] [id number]. 2.1286 1994 Unknown [id number] [id number]. 2.1286 1994 Unknown [id number] [id number]. 2.1286 1959 Unknown [id number] Private Health Insurance [id number] Self-pay Self Pay [id number] Unknown HCAP/HFA/FAP Active [id number] Social History Date Type Detail [facility] Work Phone: Start: 1995 Sex Assigned At Male F [facility] Start: 06-30-2022 [facility] Start: 06-30-2022 Tobacco use and exposure Smokeless tobacco non-user [facility] Start: 03-15-2024 End: 04-12-2024 Alcoholic beverage intake Current drinker of alcohol (finding) [facility] Start: 03-15-2024 End: 04-12-2024 Alcoholic beverage intake [facility] Start: 03-15-2024 End: 04-12-2024 Tobacco use panel [facility] Adolescent depressio n screening assessment 0 [facility] Start: 03-15-2024 Alcohol Comment Daily [facility] Start: 1995 Sex assigned at Not on file P [facility] Start: 03-13-2015 Sex Male (finding) [facility] Clinical Notes 08-24-2023 to 04-12-2024 [facility] 04/12/2024 2:20 PM EDTSapna Munoz [facility] - 03/15/2024 2:20 PM EDTSapna Munoz PRODUCT BLENDING [facility]PER[facility] - 02/16/2024 1:40 PM EDT Note Date & Type Note Facility 04-12-2024 History of Present illness Narrative Images from the original note were not included. [address] [place] [phone] SUBJECTIVE: Patient ID: Juan Manuel Bernardo is a 28 y.o. male. Chief Complaint Patient presents with Weight Check Presents for weight loss visit. Is doing well. Has lost another 2 pounds. Current weight is 215. Has lost 42 pounds since June. He would like this to be the last month of taking phentermine. The following portions of the patient's history were reviewed and updated as appropriate: allergies, current medications, past family history, past medical history, past social history, past surgical history and problem list. Past Surgical History: Procedure Laterality Date ADENOIDECTOMY NASAL SEPTUM SURGERY TONSILLECTOMY TYMPANOSTOMY TUBE PLACEMENT x5 Past Medical History: Diagnosis Date Anxiety Hypertension Immunization History Administered Date(s) Administered Tdap 12/06/2014 REVIEW OF SYSTEMS: Review of Systems Constitutional: Negative for chills, fatigue and fever. HENT: Negative for hearing loss and trouble swallowing. Eyes: Negative for pain and visual disturbance. Respiratory: Negative for cough, chest tightness and shortness of breath. Cardiovascular: Negative for chest pain, palpitations and leg swelling. Gastrointestinal: Negative for blood in stool. Endocrine: Negative for polydipsia, polyphagia and polyuria. Genitourinary: Negative for difficulty urinating, dysuria, flank pain, hematuria, scrotal swelling and testicular pain. Musculoskeletal: Negative. Skin: Negative. Neurological: Negative for seizures, syncope and headaches. Hematological: Does not bruise/bleed easily. Psychiatric/Behavioral: Negative. PHYSICAL EXAMINATION: Vitals: 04/12/24 1429 BP: 110/80 BP Site: Left Arm BP Postition: Sitting Pulse: 117 Resp: 18 Temp: 36.6 C (97.9 F) TempSrc: Oral SpO2: 97% Weight: 97.8 kg (215 lb 9.6 oz) Height: 172.7 cm (5' 8 ) Patient noted to have elevated BMI and the following intervention(s) were applied: encouragement to exercise. Physical Exam Vitals and nursing note reviewed. Constitutional: General: He is not in acute distress. Appearance: He is well-developed. HENT: Head: Normocephalic and atraumatic. Right Ear: Tympanic membrane and external ear normal. Left Ear: Tympanic membrane and external ear normal. Nose: Nose normal. Mouth/Throat: Mouth: Mucous membranes are moist. Pharynx: No oropharyngeal exudate. Eyes: General: No scleral icterus. Right eye: No discharge. Left eye: No discharge. Conjunctiva/sclera: Conjunctivae normal. Pupils: Pupils are equal, round, and reactive to light. Neck: Vascular: No JVD. Cardiovascular: Rate and Rhythm: Normal rate and regular rhythm. Heart sounds: Normal heart sounds. No murmur heard. No friction rub. No gallop. Pulmonary: Effort: Pulmonary effort is normal. No respiratory distress. Breath sounds: Normal breath sounds. Chest: Chest wall: No tenderness. Abdominal: General: Bowel sounds are normal. There is no distension. Palpations: Abdomen is soft. There is no mass. Tenderness: There is no abdominal tenderness. There is no guarding or rebound. Hernia: No hernia is present. Musculoskeletal: General: No tenderness. Normal range of motion. Cervical back: Normal range of motion and neck supple. Lymphadenopathy: Cervical: No cervical adenopathy. Skin: General: Skin is warm and dry. Capillary Refill: Capillary refill takes less than 2 seconds. Findings: No rash. Neurological: Mental Status: He is alert and oriented to person, place, and time. Deep Tendon Reflexes: Reflexes are normal and symmetric. Psychiatric: Mood and Affect: Mood normal. Behavior: Behavior normal. Thought Content: Thought content normal. Judgment: Judgment normal. ASSESSMENT/PLAN: Juan Manuel was seen today for weight check. Diagnoses and all orders for this visit: Class 1 obesity due to excess calories without serious comorbidity with body mass index (BMI) of 32.0 to 32.9 in adult - phentermine (ADIPEX-P) 37.5 mg tablet; Take 1 tablet (37.5 mg total) by mouth every morning before breakfast. The OARRS/MAPPS database was reviewed today and found to be appropriate. No indication of medication diversion, or non compliance. Body mass index is 32.78 kg/m . Patient noted to have elevated BMI and the following intervention(s) were applied: Discussed current weight today. Consider healthy food choices, portion control. Avoid sugary beverages and high concentrated sweets. Routine exercise regimen encouraged. Reorder phentermine 37.5 mg oral daily ALL QUESTIONS ANSWERED Total time spent was 25 minutes: Preparing to see the patient (e.g., review of tests) Obtaining and/or reviewing separately obtained history Performing a medically appropriate examination and/or evaluation Counseling and educating the patient/family/caregiver Ordering medications, tests, or procedures Follow-up: 6 months Sapna Munoz APRNEVI 04/12/24 3491 documented in this encounter [employer] 03-15-2024 History of Present illness Narrative Images from the original [place] [id number] SUBJECTIVE: Patient ID: Juan Manule Bernardo is a 28 y.o. male. Chief Complaint Patient presents with Weight Presents for weight loss follow up States at work he walks up and down flights of stairs for good exercise. He did not loose any weight this month. His goal weight is 190 to 200 pounds. Current weight is 217 today. The following portions of the patient's history were reviewed and updated as appropriate: allergies, current medications, past family history, past medical history, past social history, past surgical history and problem list. Past Surgical History: Procedure Laterality Date ADENOIDECTOMY NASAL SEPTUM SURGERY TONSILLECTOMY TYMPANOSTOMY TUBE PLACEMENT x5 Past Medical History: Diagnosis Date Anxiety Hypertension Immunization History Administered Date(s) Administered Tdap 12/06/2014 REVIEW OF SYSTEMS: Review of Systems Constitutional: Negative for chills, fatigue and fever. HENT: Negative for hearing loss and trouble swallowing. Eyes: Negative for pain and visual disturbance. Respiratory: Negative for cough, chest tightness and shortness of breath. Cardiovascular: Negative for chest pain, palpitations and leg swelling. Gastrointestinal: Negative for blood in stool. Endocrine: Negative for polydipsia, polyphagia and polyuria. Genitourinary: Negative for difficulty urinating, dysuria, flank pain, hematuria, scrotal swelling and testicular pain. Musculoskeletal: Negative. Skin: Negative. Allergic/Immunologic: Negative. Neurological: Negative for seizures, syncope and headaches. Hematological: Does not bruise/bleed easily. Psychiatric/Behavioral: Negative. PHYSICAL EXAMINATION: Vitals: 03/15/24 1425 BP: 124/80 BP Site: Left Arm BP Postition: Sitting Pulse: 79 Temp: 37 C (98.6 F) TempSrc: Oral SpO2: 98% Weight: 98.5 kg (217 lb 3.2 oz) Height: 172.7 cm (5' 8 ) Patient noted to have elevated BMI and the following intervention(s) were applied: encouragement to exercise. Physical Exam Vitals and nursing note reviewed. Constitutional: General: He is not in acute distress. Appearance: He is well-developed. HENT: Head: Normocephalic and atraumatic. Right Ear: Tympanic membrane and external ear normal. Left Ear: Tympanic membrane and external ear normal. Nose: Nose normal. Mouth/Throat: Mouth: Mucous membranes are moist. Pharynx: No oropharyngeal exudate. Eyes: General: No scleral icterus. Right eye: No discharge. Left eye: No discharge. Conjunctiva/sclera: Conjunctivae normal. Pupils: Pupils are equal, round, and reactive to light. Neck: Vascular: No JVD. Cardiovascular: Rate and Rhythm: Normal rate and regular rhythm. Heart sounds: Normal heart sounds. No murmur heard. No friction rub. No gallop. Pulmonary: Effort: Pulmonary effort is normal. No respiratory distress. Breath sounds: Normal breath sounds. Chest: Chest wall: No tenderness. Abdominal: General: Bowel sounds are normal. There is no distension. Palpations: Abdomen is soft. There is no mass. Tenderness: There is no abdominal tenderness. There is no guarding or rebound. Hernia: No hernia is present. Musculoskeletal: General: No tenderness. Normal range of motion. Cervical back: Normal range of motion and neck supple. Lymphadenopathy: Cervical: No cervical adenopathy. Skin: General: Skin is warm and dry. Capillary Refill: Capillary refill takes less than 2 seconds. Findings: No rash. Neurological: Mental Status: He is alert and oriented to person, place, and time. Deep Tendon Reflexes: Reflexes are normal and symmetric. Psychiatric: Mood and Affect: Mood normal. Behavior: Behavior normal. Thought Content: Thought content normal. Judgment: Judgment normal. ASSESSMENT/PLAN: Juan Manuel was seen today for weight . Diagnoses and all orders for this visit: Class 1 obesity due to excess calories without serious comorbidity with body mass index (BMI) of 33.0 to 33.9 in adult - phentermine (ADIPEX-P) 37.5 mg tablet; Take 1 tablet (37.5 mg total) by mouth every morning before breakfast. Has been working towards weight loss since June 2023. Has been incorporating exercise, dietary changes, and phentermine. Has lost 40 pounds since June. We discussed goal weight today. He would like to be between 190 to 200 pounds. Reorder phentermine 37.5 mg oral daily The OARRS/MAPPS database was reviewed today and found to be appropriate. No indication of medication diversion, or non compliance. ALL QUESTIONS ANSWERED Total time spent was 25 minutes: Preparing to see the patient (e.g., review of tests) Obtaining and/or reviewing separately obtained history Performing a medically appropriate examination and/or evaluation Counseling and educating the patient/family/caregiver Ordering medications, tests, or procedures Follow-up: One month FLORENTIN Murguia 03/15/24 1446 documented in this encounter [employer] 02-16-2024 History of Present illness Narrative Images from the original note were not included. [address] [facility] [id number] SUBJECTIVE: Patient ID: Juan Manuel Bernardo is a 28 y.o. male. Chief Complaint Patient presents with weight loss Juan Manuel is a previous patient of Dr. Ricks and Lilibeth Allan APRN. He has been on a wieght loss journey since June 2023. Has been incorporating exercise, dietary changes, and phentermine. Has lost 40 pounds since June. History of HTN and depression. Blood pressure is well controlled with losartan. Moods have been stable with Lexapro. Depression Visit: Follow-up Initial visit: Symptoms: no chest pain, no palpitations and no shortness of breath Follow-up visit: Symptoms: decreased concentration and depressed mood Frequency: Rarely Severity: Mild Current Treatment: SSRI's Response to treatment: Stable Hypertension This is a chronic problem. The current episode started more than 1 year ago. The problem is controlled. Pertinent negatives include no chest pain, headaches, palpitations or shortness of breath. There are no associated agents to hypertension. Risk factors for coronary artery disease include family history, male gender and obesity. Past treatments include calcium channel blockers. The current treatment provides significant improvement. There are no compliance problems. The following portions of the patient's history were reviewed and updated as appropriate: allergies, current medications, past family history, past medical history, past social history, past surgical history and problem list. Past Surgical History: Procedure Laterality Date ADENOIDECTOMY NASAL SEPTUM SURGERY TONSILLECTOMY TYMPANOSTOMY TUBE PLACEMENT x5 Past Medical History: Diagnosis Date Anxiety Hypertension Immunization History Administered Date(s) Administered Tdap 12/06/2014 REVIEW OF SYSTEMS: Review of Systems Constitutional: Negative for chills, fatigue and fever. HENT: Negative for hearing loss and trouble swallowing. Eyes: Negative for pain and visual disturbance. Respiratory: Negative for cough, chest tightness and shortness of breath. Cardiovascular: Negative for chest pain, palpitations and leg swelling. Gastrointestinal: Negative for blood in stool. Endocrine: Negative for polydipsia, polyphagia and polyuria. Genitourinary: Negative for difficulty urinating, dysuria, flank pain, hematuria, scrotal swelling and testicular pain. Musculoskeletal: Negative. Skin: Negative. Allergic/Immunologic: Negative. Neurological: Negative for seizures, syncope and headaches. Hematological: Does not bruise/bleed easily. Psychiatric/Behavioral: Negative. PHYSICAL EXAMINATION: Vitals: 02/16/24 1350 BP: 124/82 BP Site: Left Arm BP Postition: Sitting Pulse: 78 Resp: 20 Temp: 36.7 C (98.1 F) TempSrc: Oral SpO2: 99% Weight: 98.2 kg (216 lb 6.4 oz) Height: 172.7 cm (5' 8 ) Patient noted to have elevated BMI and the following intervention(s) were applied: encouragement to exercise. Physical Exam Vitals and nursing note reviewed. Constitutional: General: He is not in acute distress. Appearance: He is well-developed. HENT: Head: Normocephalic and atraumatic. Right Ear: Tympanic membrane and external ear normal. Left Ear: Tympanic membrane and external ear normal. Nose: Nose normal. Mouth/Throat: Mouth: Mucous membranes are moist. Pharynx: No oropharyngeal exudate. Eyes: General: No scleral icterus. Right eye: No discharge. Left eye: No discharge. Conjunctiva/sclera: Conjunctivae normal. Pupils: Pupils are equal, round, and reactive to light. Neck: Vascular: No JVD. Cardiovascular: Rate and Rhythm: Normal rate and regular rhythm. Heart sounds: Normal heart sounds. No murmur heard. No friction rub. No gallop. Pulmonary: Effort: Pulmonary effort is normal. No respiratory distress. Breath sounds: Normal breath sounds. Chest: Chest wall: No tenderness. Abdominal: General: Bowel sounds are normal. There is no distension. Palpations: Abdomen is soft. There is no mass. Tenderness: There is no abdominal tenderness. There is no guarding or rebound. Hernia: No hernia is present. Musculoskeletal: General: No tenderness. Normal range of motion. Cervical back: Normal range of motion and neck supple. Lymphadenopathy: Cervical: No cervical adenopathy. Skin: General: Skin is warm and dry. Capillary Refill: Capillary refill takes less than 2 seconds. Findings: No rash. Neurological: Mental Status: He is alert and oriented to person, place, and time. Deep Tendon Reflexes: Reflexes are normal and symmetric. Psychiatric: Mood and Affect: Mood normal. Behavior: Behavior normal. Thought Content: Thought content normal. Judgment: Judgment normal. ASSESSMENT/PLAN: Juan Manuel was seen today for weight loss. Diagnoses and all orders for this visit: Essential hypertension - losartan (COZAAR) 100 mg tablet; Take 1 tablet (100 mg total) by mouth in the morning. Recurrent major depressive disorder, in partial remission (CMS-HCC) - escitalopram (LEXAPRO) 5 mg tablet; Take 1 tablet (5 mg total) by mouth in the morning. Familial Scheuermann disease - tiZANidine (ZANAFLEX) 4 mg tablet; Take 1 tablet (4 mg total) by mouth nightly as needed for muscle spasms. Class 1 obesity due to excess calories without serious comorbidity with body mass index (BMI) of 33.0 to 33.9 in adult - phentermine (ADIPEX-P) 37.5 mg tablet; Take 1 tablet (37.5 mg total) by mouth every morning before breakfast. Body mass index is 32.9 kg/m . Patient noted to have elevated BMI and the following intervention(s) were applied: Discussed current weight today. Consider healthy food choices, portion control. Avoid sugary beverages and high concentrated sweets. Routine exercise regimen encouraged. -Has lost 40 pounds since June 2023. -Continue phentermine 37.5 mg oral daily The OARRS/MAPPS database was reviewed today and found to be appropriate. No indication of medication diversion, or non compliance. 2. HTN Controlled 124/82 Reorder losartan 100 mg oral daily 3. Depression Depression: Not at risk (02/16/2024) PHQ-2 PHQ-2 Score: 0 Stable Continue Lexapro 5 mg oral daily ALL QUESTIONS ANSWERED Total time spent was 30 minutes: Preparing to see the patient (e.g., review of tests) Obtaining and/or reviewing separately obtained history Performing a medically appropriate examination and/or evaluation Counseling and educating the patient/family/caregiver Ordering medications, tests, or procedures Follow-up: Weight check. Please change to me as his provider. FLORENTIN Murguia 02/16/24 1502 [facility] History of Present illness Narrative Subjective Patient ID: Juan Manuel Bernardo is a 28 y.o. male. 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 Review of Systems Constitutional: Negative. HENT: Negative. Eyes: Negative. Respiratory: Negative. Cardiovascular: Negative. Gastrointestinal: Negative. Endocrine: Negative. Genitourinary: Negative. Musculoskeletal: Negative. Allergic/Immunologic: Negative. Neurological: Negative. Hematological: Negative. Psychiatric/Behavioral: Negative. Objective Physical Exam Vitals and nursing note reviewed. Constitutional: Appearance: He is obese. Cardiovascular: Rate and Rhythm: Normal rate and regular rhythm. Pulses: Normal pulses. Heart sounds: Normal heart sounds. No murmur heard. Pulmonary: Effort: Pulmonary effort is normal. No respiratory distress. Breath sounds: Normal breath sounds. Musculoskeletal: Right lower leg: No edema. Left lower leg: No edema. Lymphadenopathy: Cervical: No cervical adenopathy. Skin: General: Skin is warm and dry. Capillary Refill: Capillary refill takes less than 2 seconds. Neurological: General: No focal deficit present. Mental Status: He is alert and oriented to person, place, and time. Psychiatric: Mood and Affect: Mood normal. Behavior: Behavior normal. Thought Content: Thought content normal. Judgment: Judgment normal. Assessment/Plan Juan Manuel was seen today for weight check. Diagnoses and all orders for this visit: Class 1 obesity due to excess calories without serious comorbidity with body mass index (BMI) of 33.0 to 33.9 in adult - phentermine (ADIPEX-P) 37.5 mg tablet; Take 1 tablet (37.5 mg total) by mouth every morning before breakfast. Encouraged to get back into more of his routine of exercise Continue healthy choices eating Continue adipex another month then re-evaluate Patient noted to have elevated BMI and the following intervention(s) were applied: encouragement to exercise. The OARRS/MAPPS database was reviewed today and found to be appropriate. No indication of medication diversion, or non compliance. MATEUS Strickland 01/10/24 1839 [facility] History of Present illness Narrative Subjective Patient ID: Juan Manuel Bernardo is a 28 y.o. male. 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 so that has limited his ability to work out, also when he takes his Accutane he has to drink a lot of water and retains some fluid for a few days as he was down to 214 at home which is much less than he is here Otherwise he continues to tolerate the adipex well and would like to continue Starting weight was 234, today he is 222 The following portions of the patient's history were reviewed and updated as appropriate: allergies, current medications, past family history, past medical history, past social history, past surgical history, problem list, and medication reconciliation was completed including current medication and post discharge medication. Review of Systems Constitutional: Positive for activity change (due to injury, he has now recovered and is getting back in his routine). HENT: Negative. Eyes: Negative. Respiratory: Negative. Cardiovascular: Negative. Gastrointestinal: Negative. Endocrine: Negative. Genitourinary: Negative. Musculoskeletal: Negative. Neurological: Negative. Hematological: Negative. Psychiatric/Behavioral: Negative. Objective Physical Exam Vitals and nursing note reviewed. Constitutional: Appearance: He is obese. Eyes: Conjunctiva/sclera: Conjunctivae normal. Cardiovascular: Rate and Rhythm: Normal rate and regular rhythm. Pulses: Normal pulses. Heart sounds: Normal heart sounds. No murmur heard. Pulmonary: Effort: Pulmonary effort is normal. No respiratory distress. Breath sounds: Normal breath sounds. Musculoskeletal: Cervical back: Neck supple. No tenderness. Right lower leg: No edema. [...] and all orders for this visit: Class 1 obesity due to excess calories without serious comorbidity with body mass index (BMI) of 33.0 to 33.9 in adult - phentermine (ADIPEX-P) 37.5 mg tablet; Take 1 tablet (37.5 mg total) by mouth every morning before breakfast. OARRS reviewed, progress has slowed but he continues to progress, will continue the adipex for an additional month and re-evaluate The OARRS/MAPPS database was reviewed today and found to be appropriate. No indication of medication diversion, or non compliance. MATEUS Strickland 12/13/23 [id number] documented in this encounter [employer] 11-01-2023 History of Present illness Narrative Subjective [...] diversion, or non compliance. MATEUS Strickland 11/01/23 1730 documented in this encounter [facility] 09-26-2023 History of Present illness Narrative Subjective [...] Strickland 09/26/23 1835 documented in this encounter [facility] [employer] 08-24-2023 History of Present illness Narrative Subjective Patient ID: Juan Manuel Bernardo is a 28 y.o. male. Here today for weight check on adipex He has lost 11 lbs since his last visit He has also started to do more meal prep so he is making better choices He is continuing to go to the gym several times per week and doing a combination of cardio and weights He is not having any side effects from the adipex He also would like to see someone about his low testosterone but prefers and flight purser to a urologist The following portions of the patient's history were reviewed and updated as appropriate: allergies, current medications, past family history, past medical history, past social history, past surgical history, problem list, and medication reconciliation was completed including current medication and post discharge medication. Review of Systems Constitutional: Positive for activity change. HENT: Negative. Eyes: Negative. Respiratory: Negative. Cardiovascular: Negative. Gastrointestinal: Negative. Endocrine: Positive for cold intolerance. Genitourinary: Negative. Musculoskeletal: Negative. Skin: Negative. Allergic/Immunologic: Negative. Neurological: Negative. Hematological: Negative. Psychiatric/Behavioral: Negative. Objective Physical Exam Vitals and nursing note reviewed. Constitutional: Appearance: He is obese. HENT: Head: Normocephalic. Cardiovascular: Rate and Rhythm: Normal rate and regular rhythm. Heart sounds: Normal heart sounds. No murmur heard. Pulmonary: Effort: Pulmonary effort is normal. Breath sounds: Normal breath sounds. Musculoskeletal: Right lower leg: No edema. Left lower [...] (BMI) of 35.0 to 35.9 in adult - phentermine (ADIPEX-P) 37.5 mg tablet; Take 1 tablet (37.5 mg total) by mouth every morning before breakfast. Low testosterone in male - [facility] - [place], [place]; Future OARRS reviewed he did have a long period from his last refill but sometimes was taking only every other day as he does not want to become dependent on it, nonetheless he had very good results and he would like to continue A referral is made to endocrine for him The OARRS/MAPPS database was reviewed today and found to be appropriate. No indication of medication diversion, or non compliance. MATEUS Strickland 08/24/23 8179 documented in this encounter [facility] Evaluation note No assessment inform ation available [facility] Work Phone: Evaluation note Diagnosis Essential hypertension Unspecified essential hypertension documented in this encounter [facility]* Diagnosis Class 1 obesity due to excess calories without serious comorbidity with body mass index (BMI) of 33.0 to 33.9 in adult- Primary documented in this encounter [facility]* Diagnosis Class 1 obesity due to excess calories without serious comorbidity with body mass index (BMI) of 33.0 to 33.9 in adult- Primary documented in this encounter [facility]* Diagnosis Class 2 obesity due to excess calories without serious comorbidity with body mass index (BMI) of 35.0 to 35.9 in adult- Primary Low testosterone in male documented in this encounter [facility]* Diagnosis Class 2 obesity with body mass index (BMI) of 36.0 to 36.9 in adult, unspecified obesity type, unspecified whether serious comorbidity present- Primary documented in this encounter [facility]* Diagnosis Essential hypertension- Primary Unspecified essential hypertension Recurrent major depressive disorder, in partial remission ([facility]) Familial Scheuermann disease Class 1 obesity due to excess calories without serious comorbidity with body mass index (BMI) of 33.0 to 33.9 in adult documented in this encounter [facility]* Diagnosis Class 2 obesity due to excess calories without serious comorbidity with body mass index (BMI) of 35.0 to 35.9 in adult- Primary Tendonitis Enthesopathy of unspecified site Class 2 obesity with body mass index (BMI) of 36.0 to 36.9 in adult, unspecified obesity type, unspecified whether serious comorbidity present Essential hypertension Unspecified essential hypertension documented in this encounter [facility]* Diagnosis Class 1 obesity due to excess calories without serious comorbidity with body mass index (BMI) of 33.0 to 33.9 in adult documented in this encounter [facility]* Diagnosis Chronic back pain, unspecified back location, unspecified back pain laterality- Primary documented in this encounter [facility] SystemEvaluation note* Diagnosis Class 1 obesity due to excess calories without serious comorbidity with body mass index (BMI) of 32.0 to 32.9 in adult- Primary documented in this encounter [facility] SystemInstructionsNot on filedocumented in this encounter [facility] SystemInstructionsNot on filedocumented in this encounter [facility] SystemInstructionsNot on filedocumented in [facility]* Attachments The following attachments cannot be sent through Care Everywhere. * Calorie Counting Diet ([place]) [facility]* Attachments The following attachments cannot be sent through Care Everywhere. * Lateral Epicondylitis Exercises ([place]) [facility]* Attachments The following attachments cannot be sent through Care Everywhere. * Body Mass Index, Adult ([place]) [facility] SystemInstructionsNot on file [facility]* Attachments The following attachments cannot be sent through Care Everywhere. * Calorie Counting Diet ([place]) [facility] Purpose Family History No Family [...] Contac t Referred To Contact Diagnoses Class 1 obesity due to excess calories without serious comorbidity with body mass index (BMI) of 33.0 to 33.9 in adult Lilibeth Allan, PRODUCT BLENDING SUPERVISOR-FARM SUPERVISOR [address] [place] [address] Referral ID Status Reason Start Date Expiration Date V isits Requested Visits Authorized [id number] Pending Review 1 1 Referral ID Status Reason Start Date Expiration Date V isits Requested Visits Authorized [id number] Pending Review 1 1 Specialty Diagnoses / Procedures Referred By Contac t Referred To Contact Diagnoses Class 2 obesity due to excess calories without serious comorbidity with body mass index (BMI) of 35.0 to 35.9 in adult Lilibeth Allan, PRODUCT BLENDING SUPERVISOR-FARM SUPERVISOR [address] [place] [address] Referral ID Status Reason Start Date Expiration Date Visits Re quested Visits Authorized [id number] Closed 1 1 Specialty Diagnoses / Procedures Referred By Contac t Referred To Contact Maternal and Medicine / Endocrinology Diagnoses Low testosterone in male Lilibeth Allan, [facility] [address] [place] [address] [facility] [address] [place] [address] Referral ID Status Reason Start Date Expiration Date Visits Requested Visits Authorized [id number] Pending Review Specialty Services Required 08/24/2023 08/23/2024 1 1 Specialty Diagnoses / Procedures Referred By Contac t Referred To Contact Diagnoses Class 2 obesity with body mass index (BMI) of 36.0 to 36.9 in adult, unspecified obesity type, unspecified whether serious comorbidity present Lilibeth Allan, [facility] [address] [place] [address] Referral ID Status Reason Start Date Expiration Date Visits Re quested Visits Authorized [id number] Closed 1 1 Specialty Diagnoses / Procedures Referred By Contac t Referred To Contact Diagnoses Class 1 obesity due to excess calories without serious comorbidity with body mass index (BMI) of 33.0 to 33.9 in adult Munoz Sapna Lloyd APRN-MICROBIOLOGY INSTRUCTOR [address] [place] [address] Referral ID Status Reason Start Date Expiration Date V isits Requested Visits Authorized [id number] Pending Review 02/16/2024 02/15/2025 1 1 Referral ID Status Reason Start Date Expiration Date Visits Re quested Visits Authorized [id number] Closed 1 1 Referral ID Status Reason Start Date Expiration Date V isits Requested Visits Authorized [id number] Pending Review 03/15/2024 03/15/2025 1 1 Specialty Diagnoses / Procedures Referred By Contac t Referred To Contact Diagnoses Class 1 obesity due to excess calories without serious comorbidity with body mass index (BMI) of 32.0 to 32.9 in adult Sapna Munoz APRN-MICROBIOLOGY INSTRUCTOR [address] [place] [address] Referral ID Status Reason Start Date Expiration Date V isits Requested Visits Authorized [id number] Pending Review 04/12/2024 04/12/2025 1 1 Additional Source Comments (unrecognized sect ion and content) No Status Records FoundNo Status Records FoundNo Status Records FoundNo Status Records FoundNo Status Records FoundNo Status Records Found INFORMATION SOURCE (unrecogn ized section and content) DATE CREATED AUTHOR 07/17/2018 [facility] DATE CREATED AUTHOR AUTHOR'S ORGANIZ ATION 07/17/2018 [employer] DATE CREATED AUTHOR AUTHOR'S ORGANIZ ATION 08/28/2019 [facility] DATE CREATED AUTHOR AUTHOR'S ORGANIZ ATION 01/01/2021 [facility] DATE CREATED AUTHOR AUTHOR'S ORGANIZ ATION 03/11/2022 [facility] DATE CREATED AUTHOR AUTHOR'S ORGANIZ ATION 04/14/2024 [facility] Goals (unrecognized section and content) Goals may be documented in a n alternate sectionNot on filedocumented as of this encounterNot on filedocumented as of this encounterNot on filedocumented as of this encounterNot on filedocumented as of this encounterNot on filedocumented as of this encounterNot on filedocumented as of this encounterNot on filedocumented as of this encounterNot on filedocumented as of this encounterNot on filedocumented as of this encounterNot on filedocumented as of this encounter Reason for Visit (unrecogniz ed section and content) Reason Onset Date Comments Med Refill 08/14/2024 Reason Comments Weight Check Reason Comments Weight Check Reason Comments weight loss Reason Comments Weight Loss Reason Comments Weight Care Teams (unrecognized sec tion and content) [employer] Furnace Tender Relationship Specialty Start Date End Date Sapna Munoz APRN-CNP [address] [place] [address] PCP - General Family Medicine 02/16/24 [employer] Furnace Tender Relationship Specialty Start Date End Date Santos Ricks DO [address] [place] [address] PCP - General Internal Medicine 06/30/22 [employer] Furnace Tender Relationship Specialty Start Date End Date Santos Ricks [address] [place] [address] PCP - General Internal Medicine 06/30/22 Reel [employer] Furnace Tender Relationship Specialty Start Date End Date Santos RicksDO [address] [place] [address] PCP - General Internal Medicine 06/30/22 Reel [employer] Furnace Tender Relationship Specialty Start Date End Date Sapna Munoz APRN-MICROBIOLOGY INSTRUCTOR [address] [place] [address] PCP - General Family Medicine 02/16/24 Reel [employer]ade Bender Furnace Tender Relationship Specialty Start Date End Date Santos RicksDO [address] [place] [address] PCP - General Internal Medicine 06/30/22 Re[employer] Furnace Tender Relationship Specialty Start Date End Date Sapna Munoz APRN-MICROBIOLOGY INSTRUCTOR [address] [place] [address] PCP - General Family Medicine 02/16/24 [employer] Furnace Tender Relationship Specialty Start Date End Date Sapna Munoz PRODUCT BLENDING SUPERVISOR-MICROBIOLOGY INSTRUCTOR [address] [place] [address] PCP - General Family Medicine 02/16/24 Reel [employer] Furnace Tender Relationship Specialty Start Date End Date Sapna Munoz, PRODUCT BLENDING SUPERVISOR-MICROBIOLOGY INSTRUCTOR [address] [place] [address] PCP - General Family Medicine 02/16/24 FOR RECORDS PERTAINING TO PATIENTS WHO ARE [...] BE BASED ON THE PRIMARY CLINICAL RECORDS. [employer] [facility]. provides no warranty or guarantee of the accuracy or completeness of information in this document.
--- NOTE | 2025-01-14 05:40 | ED.NAVMDI1 ---
HPI - Nausea/Vomiting/Diarrhea General Chief complaint: Nausea/Vomiting/Diarrhea Stated complaint: NAUSEA, VOMITING, DIARRHEA, DIZZY, ACHY Time Seen by Provider: 01/14/25 05:35 Source: patient Mode of arrival: Wheelchair History of Present Illness HPI Narrative: presents with recurrent vomiting and diarrhea that started last PM. Now feels very weak. No obvious hematemesis or blood per rectum. No one else is ill. Patient works on a farm. States more diarrhea than vomiting. Related Data Home Medications ?Medication ?Instructions ?Recorded ?Confirmed escitalopram oxalate 5 mg tablet 5 mg PO DAILY 11/18/23 01/14/25 losartan 100 mg tablet 100 mg PO DAILY 11/18/23 01/14/25 naproxen 500 mg tablet 500 mg PO Q12H 11/18/23 01/14/25 tizanidine 4 mg tablet 4 mg PO DAILY 11/18/23 01/14/25 benzoyl peroxide 5 % topical 1 applic topical DAILY 01/14/25 01/14/25 cleanser cefuroxime axetil 250 mg tablet 250 mg PO BID 01/14/25 01/14/25 ketoconazole 2 % shampoo 1 applic topical .2 times wkly 01/14/25 01/14/25 Allergies Allergy/AdvReac Type Severity Reaction Status Date / Time No Known Drug Allergies Allergy Verified 11/18/23 05:49 Review of Systems ROS Status of ROS 10 or more systems reviewed and unremarkable except as noted in history and below PFSH PFSH Social History Little interest or pleasure in doing things: not at all Feeling down, depressed, or hopeless: not at all Exam Constitutional Vital Signs, click to edit/add: Last Vital Signs Temp 98.4 F 01/14/25 05:26 Pulse 120 H 01/14/25 05:26 Resp 16 01/14/25 05:26 BP 123/91 01/14/25 05:26 Pulse Ox 96 01/14/25 05:26 O2 Del Method Room Air 01/14/25 05:26 Common normals: no apparent distress, average body habitus, oriented x3, no limitations, healthy appearing, alert and well nourished [facility] Common normals: normocephalic and head/scalp atraumatic Eye Common normals: PERRL, EOMs intact bilaterally and conjunctivae normal Respiratory Common normals: normal respiratory effort, no retractions, no use of accessory muscles and clear to auscultation bilaterally Cardio Common normals: regular rate, regular rhythm, S1 normal heart sound and S2 normal heart sound GI Common normals: Normal to inspection, nondistended, normoactive bowel sounds present, soft to palpation and non-tender Extremity Common normals: normal to inspection and full ROM Neuro Common normals: oriented x3, CN's II-XII intact bilaterally and moves all extremities Psych Appearance: grossly normal Course Vital Signs Vital signs: Vital Signs Temperature 98.4 F 01/14/25 05:26 Pulse Rate 120 H 01/14/25 05:26 Respiratory Rate 16 01/14/25 05:26 Blood Pressure 123/91 01/14/25 05:26 Pulse Oximetry 96 01/14/25 05:26 Oxygen Delivery Method Room Air 01/14/25 05:26 Temperature 98.4 F 01/14/25 05:26 Pulse Rate 120 H 01/14/25 05:26 Respiratory Rate 16 01/14/25 05:26 Blood Pressure 123/91 01/14/25 05:26 Pulse Oximetry 96 01/14/25 05:26 Oxygen Delivery Method Room Air 01/14/25 05:26 MDM - Nausea/Vomiting/Diarrhea MDM Narrative Medical decision making narrative: Patient presents with recurrent vomiting and diarrhea as well as generalized weakness. No fever. Abdomen is sore but exam is unremarkable. labs , antiemetics and hydration ordered. [facility] Lab Data Labs: Lab Results 01/14/25 01/14/25 Range/Units 05:30 05:56 WBC 9.7 (4.0-11.0) 10^3/uL RBC 5.79 (4.70-6.10) 10^6/uL Hgb 17.5 (14.0-18.0) g/dL Hct 49.4 (42.0-54.0) % MCV 85.3 (80.0-94.0) fL MCH 30.2 (25.9-34.0) pg MCHC 35.4 H (29.9-35.2) g/dL RDW 12.9 (11.0-15.0) % Plt Count 273 (150-450) 10^3/uL MPV 10.3 (9.5-13.5) fL Neut % (Auto) 93.1 H (43.0-75.0) % Lymph % (Auto) 2.6 L (20.5-60.0) % [place] % (Auto) 3.9 (1.7-12.0) % Eos % (Auto) 0.0 L (0.9-7.0) % Baso % (Auto) 0.2 (0.2-2.0) % Neut # (Auto) 9.0 H (1.4-6.5) 10^3/uL Lymph # (Auto) 0.3 L (1.2-3.8) 10^3/uL [place] # (Auto) 0.4 (0.3-0.8) 10^3/uL Eos # (Auto) 0.0 (0.0-0.7) 10^3/uL Baso # (Auto) 0.0 (0.0-0.1) 10^3/uL Abs Immat Gran (auto) 0.02 (0.00-0.03) 10^3/uL Imm/Tot Granulo (auto) 0.2 (0.0-0.5) % Urine Color Yellow (YELLOW) Urine Clarity Clear (CLEAR) Urine pH 6.0 (5.0-9.0) Ur Specific [place] >=1.030 A (1.005-1.025) Urine Protein 100 A (NEG/TRACE) mg/dL Urine Glucose (UA) Negative (NEGATIVE) mg/dL Urine Ketones 15 A (NEGATIVE) mg/dL Urine Occult Blood Negative (NEGATIVE) Urine Nitrite Negative (NEGATIVE) Urine Bilirubin Negative (NEGATIVE) Urine Urobilinogen 0.2 (0.2-1.0) EU/dL Ur Leukocyte Esterase Negative (NEGATIVE) Urine RBC 0-2 (0-2) #/HPF Urine WBC 0-2 A (NONE SEEN) #/HPF Ur Squamous Epith Cells None seen (NONE/RARE) #/LPF Urine Crystals None seen (None Seen) #/HPF Urine Bacteria Trace A (NONE SEEN) #/HPF Urine Casts None seen (NONE SEEN) #/LPF Urine Mucus Moderate A (NONE SEEN) Ur Culture Indicated? No Discharge Plan Discharge Patient Disposition: Still a Patient
[2025-01-14] MEDS: ONDANSETRON PF 4 MG/2 ML VIAL IV (05:59)
[2025-01-14] MEDS: 0.9 % SODIUM CHLORIDE 1,000 ML 999 ML IV ×3 (05:59→08:31)
[2025-01-14 06:10] LABS: Basophils Percent Auto 0.2 % (0.2-2.0); Hematocrit 49.4 % (42.0-54.0); Hemoglobin 17.5 g/dL (14.0-18.0); Immature Granulocytes Abs Auto 0.02 10^3/uL (0.00-0.03); Immature Granulocytes Pct Auto 0.2 % (0.0-0.5); Lymphocytes Absolute Auto 0.3 10^3/uL (1.2-3.8); Lymphocytes Percent Auto 2.6 % (20.5-60.0); Mean Corpuscular HGB Conc 35.4 g/dL (29.9-35.2); Mean Corpuscular Hemoglobin 30.2 pg (25.9-34.0); Mean Corpuscular Volume 85.3 fL (80.0-94.0); Mean Platelet Volume 10.3 fL (9.5-13.5); Monocytes Absolute Auto 0.4 10^3/uL (0.3-0.8); Monocytes Percent Auto 3.9 % (1.7-12.0); Neutrophils Percent Auto 93.1 % (43.0-75.0); Platelet Count 273 10^3/uL (150-450); Red Blood Count 5.79 10^6/uL (4.70-6.10); Red Cell Distribution Width 12.9 % (11.0-15.0); White Blood Count 9.7 10^3/uL (4.0-11.0)
[2025-01-14 06:13] LABS: Bilirubin Urine NEGATIVE (NEGATIVE); Blood Urine NEGATIVE (NEGATIVE); Clarity Urine CLEAR (CLEAR); Color Urine YELLOW (YELLOW); Glucose Urine UA NEGATIVE (NEGATIVE); Ketones Urine 15 mg/dL (NEGATIVE); Leukocyte Esterase Urine NEGATIVE (NEGATIVE); Nitrite Urine NEGATIVE (NEGATIVE); Protein Urine 100 mg/dL (NEG/TRACE); Specific Gravity Urine >=1.030 (1.005-1.025); Urobilinogen Urine 0.2 EU/dL (0.2-1.0)
[2025-01-14 06:23] LABS: Bacteria Urine TRACE #/HPF (NONE SEEN); Cast Seen? NONE SEEN #/LPF (NONE SEEN); Crystals Seen? None Seen #/HPF (None Seen); Mucus Urine MODERATE (NONE SEEN); RBC Urine 0-2 #/HPF (0-2); Squamous Epithelial Cell Urine NONE SEEN #/LPF (NONE/RARE); Urine Culture Indicated NO; WBC Urine 0-2 #/HPF (NONE SEEN)
[2025-01-14 06:31] LABS: Alanine Aminotransferase 58 U/L (16-63); Albumin Globulin Ratio 1.2; Albumin Level 4.6 g/dL (3.4-5.0); Alkaline Phosphatase 100 U/L (46-116); Anion Gap 20.9; Aspartate Amino Transferase 30 U/L (15-37); BUN Creatinine Ratio 19.8; Bilirubin Total 0.9 mg/dL (0.2-1.0); Calcium 9.4 mg/dL (8.5-10.1); Carbon Dioxide 23.3 mmol/L (21.0-32.0); Chloride 100 mmol/L (98-107); Estimated GFR (African America >60 (>=60 mL/min/1.73m^2); Estimated GFR (Non-African Ame >60 (>=60 mL/min/1.73m^2); Globulin 3.8 g/dL; Glucose 199 mg/dL (74-106); Potassium 4.2 mmol/L (3.5-5.1); Sodium 140 mmol/L (136-145); Total Protein 8.4 g/dL (6.4-8.2)
[2025-01-14 06:41] LABS: Lactate/Lactic Acid 4.4 mmol/L (0.4-2.0)
[2025-01-14] MEDS: METOCLOPRAMIDE HCL 10 MG/2 ML VIAL IVP (06:46)
[2025-01-14 06:51] VITALS: BP 120/82; PULSE 104; O2SAT 99
[2025-01-14 06:51] LABS: Magnesium 1.8 mg/dL (1.8-2.4)
[2025-01-14 09:17] VITALS: BP 128/79; PULSE 108; O2SAT 98
[2025-01-14 09:37] LABS: Lactate/Lactic Acid 3.6 mmol/L (0.4-2.0)
== END 2025-01-14 10:32 | disposition home or self-care (01) ==
PROVIDERS: Emergency Provider Internal Medicine; PCP Internal Medicine
DX: E86.0 Dehydration (principal); R11.2 Nausea with vomiting, unspecified; R19.7 Diarrhea, unspecified
CPT/HCPCS: 36415; 80053; 81001; 83605; 83735; 85025; 96361; 96374; 96375; 99284; J2405; J2765